=== PATIENT | male | born 1930 | race Caucasian/White ===

== ENCOUNTER 2016-12-31 23:03 | Inpatient (IN) | payer MEDICARE ==
[~2016-12-31] VITALS: Ht 180.3 cm; Wt 78.5 kg
[~2016-12-31 23:03] MED LIST: CLOP75TA PO; CYAN10009 PO; CYAN250T12 PO; DONE5TAB PO; FISH1CAP2 PO; FISH1CAP51 PO; FLUO15CR RIGHT EAR; FLUO15CR TOP; GUAI-782 PO; HALO5AMP2 IV; INSU100V SQ; ISOS30TA6 PO; ISOS60TA4 PO; LATA2.5D7 BOTH EYES; LISI40TA4 PO; METF10002 PO; NEOM7.5C2 RIGHT EAR; ONDA2VIA2 IV; OXYB5TAB10 PO; OXYB5TAB25 PO; SIMV80TA5 PO; THIA100V2 IV
--- OUTSIDE RECORDS SUMMARY | 2016-12-31 23:08 | XMS REPORT | Continuity of Care Document ---
Author Author [facility] Organization [facility] Address Unknown Phone Unavailable Care Team Providers Care Home Help Aide Name Role Phone Primary Care Physician Unavailable Source Comments Some departments are not documenting in the electronic medical record. If you do not see the information that you expected, contact Release of Information in the Health Information Management department at [phone] for further assistance in locating additional records.[facility] Active Allergies and Adverse Reactions Not on File Current Medications Not on file Active Problems Not on file Social History Tobacco Use Types Packs/Day Years Used Date Never Assessed Plan of Care Health Maintenance Due Date Last Done Comments Physical (Comprehensive) 1936 Exam Pertussis Vaccine 1940 Tetanus Vaccine 1946 Shingles Vaccine 1989 Prevnar/Pneumovax (#1) 1994 Influenza Vaccine 05/27/2017 Results from Last 3 Months Not on file
--- OUTSIDE RECORDS SUMMARY | 2016-12-31 23:08 | XMS REPORT | Continuity of Care Document ---
Author Author [facility] Address Unknown Phone Unavailable Allergies Medications Problems Procedures Results Encounters ACCT No. Visit Date/Time Discharge Status Pt. Type Provider Facility Loc./Unit Complaint [id number] 02/26/2014 15:00:00 2013 21:00:00 DIS Outpatient
--- OUTSIDE RECORDS SUMMARY | 2016-12-31 23:08 | XMS REPORT ---
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 213848397 Problem Bradycardia, sinus R00.1 Active 78484888 Problem Dyslipidemia 272.4 Active 763676295 Problem Hypertension 401.9 Active 00027398 Problem TIA 435.9 Active 733511334 Problem S/P CABG V45.81 Active Problem CAD (coronary artery disease) I25.10 Active 84342429 Problem S/P CABG (coronary artery bypass graft) Z95.1 Active 968878051 Problem Hypertension I10 Active 11818442 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
[2016-12-31] MEDS ORDERED: NORMAL SALINE 1,000 ML IV ONE (23:11)
--- NOTE | 2016-12-31 23:12 | NUR ---
STROKE ALERT TIMELINE ( - PT LAST KNOWN WELL PER [place]BINA PERSONNEL) 230: PT ARRIVAL TO ED VIA [facility], [facility] UPON ADMIT 6 2311: STROKE ALERT INITIATED, PT TO CT 4: WITH PT IN RADIOLOGY, BGM 140 - PROVIDER NOTIFIED 2316: RT, LAB ARRIVAL 2317: ART PSYCHOTHERAPIST, CCU ARRIVAL 2319: TELE-NEURO TIGER TEXT 2321: RETURN FROM CT - INTERPRETATION: NORMAL 2323: EKG, IV 2331: LAB RESULTED/REVIEWED 2334: TELE-NEURO ASSESSMENT 2355: PT ABLE TO STATE BIRTHDAY AT THIS TIME. DENIES PAIN. CLEARLY QUESTION WHAT IS WRONG WITH HIM AND ASKS WHERE HE IS - UNABLE TO DO SO PRIOR (PROVIDER NOTIFIED). CONTINUES TO BE UNABLE TO STATE NAME, MONTH/YEAR. STRAIGHT CATH FOR UA. 0105: PT AGAIN UNABLE TO STATE BIRTHDAY (PROVIDER NOTIFIED). PT ADMIT TO CCU.
--- NOTE | 2016-12-31 23:12 | NUR ---
PT TO CT
--- NOTE | 2016-12-31 23:16 | ERPDOC ---
Departure Disposition Decision Date: Jan 01, 2017 Disposition Decision Time: 00:30 Disposition: 02 TO [facility] Impression Impression Impression: Primary Impression: CVA (cerebral vascular accident) CVA mechanism: unspecified Qualified Codes: I63.9 - Cerebral infarction, unspecified Severity: Severe Condition: Improved Seen By: Physician only Referrals: MASON PROCTOR (Family) Problems/Meds/Labs Reviewed?: Yes Medications reviewed and manag: Yes Follow up care ordered?: Yes Mental Status: Alert, Occasionally Confused HPI - CVA/Neuro General Chief Complaint: Stroke Symptoms Stated Complaint: CONFUSION Time Seen by Provider: 23:11 Source: RN/MD, EMS Exam Limitations: clinical condition HPI - CVA/NEURO Initial Comments 86yo man presented to the ED for confusion/AMS. Unknown time of onset; unknown baseline. Pt is alert, but not oriented. Speech is confused. Started at 2030, per [facility] home staff; TIA sx 2 days ago. PMH has h/o TIA and CVA. All sx, other than confusion and garbled speech had resolved by the time EMS arrived. Occurred At: home Affected Areas/Deficit Locatio: Speech, Balance Allergies: Coded Allergies: codeine (Verified Allergy, Unknown, 01/01/17) Past History Unable to Obtain PMH Due to: clinical condition Patient Surgical History Colonoscopy 2006 Umbilical hernia repair Colon resection 2005 secondary to atypical polyp Cataract extraction 2006 CABG times 01/12/1986 Cardiac stents 3 1999 Discectomy Appendectomy Cholecystectomy TURP 1991 Left total hip 2012 Past Medical History Metabolic: diabetes Cardiac: CAD Neurological: CVA, TIA Hematologic: other Surgical History General: other Family History Family PMH: FOUND: other Vaccines Hx Influenza Vaccination: No Hx Pneumococcal Vaccination: No Social History Sexuality: female partner Review of Systems Unable to Obtain ROS Due to: clinical condition Neurological General: change in strength, dysarthria, weakness All other Systems All Other Systems: Reviewed and Negative Physical Exam General General Nourishment: well nourished, well developed, appears stated age, no acute distress, adult, obese General Body Habitus: well groomed Vitals and Pain First Documented Vital Signs Date Time Temp Pulse Resp B/P Pulse Ox O2 Delivery O2 Flow Rate FiO2 12/31/16 23:03 98.1 73 16 165/76 92 Room Air Weight: Kilograms: Height (feet): 5 Height (inches): 10.00 Triage Pain Scale: RN VS reviewed by Provider: Yes Progress Results/Orders Orders Procedure Category Date Status Time Oxygen Administration EDM 12/31/16 Transmitted 23:11 Iv Lock (Ed Only) EDM 12/31/16 Transmitted 23:11 Bgm (Ed) EDM 12/31/16 Transmitted 23:11 Nothing By Mouth (Ed EDM 12/31/16 Transmitted Only) 23:11 Cbc W/Auto LAB 12/31/16 Complete Diff-Reflex Manual 23:11 Cmp - Comprehensive LAB 12/31/16 Complete Metabolic 23:11 Troponin I W LAB 12/31/16 Complete Hemolysis Index 23:11 INR LAB 12/31/16 Complete 23:11 PTT LAB 12/31/16 Complete 23:11 EKG EKG 12/31/16 Taken 23:11 Ct Head W/O Contrast CT 12/31/16 Taken 23:11 Nih Stroke Scale FAVIOLA 12/31/16 In Process 23:11 Normal Saline (Normal PHA 12/31/16 In Process Saline Iv) 23:11 Elevate Hob FAVIOLA 12/31/16 In Process 23:11 Measure Vital Signs FAVIOLA 12/31/16 In Process 23:11 Ua, Dip Wreflex LAB 12/31/16 Complete Microsc & Jackhammer Splitter Operator 23:53 Manrique (Ed) EDM 12/31/16 Transmitted 23:53 Catheter Needs FAVIOLA 12/31/16 In Process Assessment 23:53 Bladder Scanner (Ed) EDM 12/31/16 Transmitted 23:53 Lab Results Laboratory Tests Test 12/31/16 23:14 12/31/16 23:31 01/01/17 00:06 Glucometer 140mg/dL White Blood Count 10.6T/MM3 Red Blood Count 4.45M/MM3 Hemoglobin 13.8GM/DL Hematocrit 41.0% Mean Corpuscular Volume 92.1UM3 Mean Corpuscular Hemoglobin 31.0UUG Mean Corpuscular Hemoglobin Concent 33.7GM/DL RDW Standard Deviation 41.3FL Platelet Count 251T/MM3 Mean Platelet Volume 10.4UM3 Immature Granulocyte % (Auto) 0.1% Neutrophils (%) (Auto) 79.8% Lymphocytes (%) (Auto) 11.8% Monocytes (%) (Auto) 6.0% Eosinophils (%) (Auto) 2.2% Basophils (%) (Auto) 0.1% Absolute Immature Granulocyte (auto 0.01T/MM3 Absolute Neutrophils (auto) 8.5T/MM3 Absolute Lymphocytes (auto) 1.3T/MM3 Absolute Monocytes (auto) 0.6T/MM3 Absolute Eosinophils (auto) 0.2T/MM3 Absolute Basophils (auto) 0.0T/MM3 Prothromb Time International Ratio 1.16 Activated Partial Thromboplast Time 27.0SEC Turbidity < 20 Sodium Level 142MEQ/L Potassium Level 5.0MEQ/L Chloride Level 104MEQ/L Carbon Dioxide Level 23MEQ/L Anion Gap 15MEQ/L Blood Urea Nitrogen 12.0MG/DL Creatinine 0.6MG/DL Glomerular Filtration Rate Calc 127 BUN/Creatinine Ratio 20RATIO Glucose Level 131MG/DL Calculated Osmolality 275MOSM/KG Calcium Level 9.4MG/DL Total Bilirubin 1.70MG/DL Icterus Index < 2 Aspartate Amino Transf (AST/SGOT) 25U/L Alanine Aminotransferase (ALT/SGPT) 18U/L Alkaline Phosphatase 60U/L Troponin I < 0.012ng/ml Total Protein 7.4G/DL Albumin 4.3G/DL Globulin 3.1G/DL Albumin/Globulin Ratio 1.4RATIO Chemistry Specimen Hemolysis 128 Urine Collection Type Manrique indwelling Urine Color Yellow Urine Turbidity Clear Urine pH 5.0 Urine Specific [place] >=1.030 Urine Protein Negative Urine Glucose (UA) Negative Urine Ketones Trace Urine Blood Negative Urine Nitrite Negative Urine Bilirubin Negative Urine Urobilinogen 0.2EU/DL Urine Leukocyte Esterase Negative Urinalysis Comment Microscopic not ind. Medications Current ED Medications Sodium Chloride (Normal Saline IV) 1,000 ml @ 125 mls/hr Q8H ONCE IV Last administered on 01/01/17 01:00; Start 12/31/16 at 23:11; Stop 01/01/17 at 07:10 EKG EKG : Rate: 60-100 Rhythm: sinus [place]: normal QRS: RBBB Intervals: [address]/T: normal Interpreted by: signing physician Consult/PCP Consult/PCP #1: Physician Contacted: [facility] Time Called: 23:19 Time of first response: 23:25 Type of discussion: Phone Consult/PCP Discussion Details No indications for TPA, can obtain MRI to confirm dx of CVA, no indications for aggressive intervention. Consult/PCP #2: [facility] Time Called: 00:24 Time of first response: 00:30 Type of discussion: Admit Discussion/PCP Discussion Details Will admit CT CT : CT: Head no contrast Interpretation: Normal, Reviewed Written Report NEENA MURRY DO Dec 31, 2016 23:16
--- NOTE | 2016-12-31 23:25 | NUR ---
PT RETURN FROM IMAGING
[2016-12-31 23:43] LABS: BASOPHILS % (AUTO) 0.1 % (0-2); EOSINOPHILS # (AUTO) 0.2 T/MM3 (0-0.5); EOSINOPHILS % (AUTO) 2.2 % (0-4); HGB - HEMOGLOBIN 13.8 GM/DL (13.5-17.5); IMMATURE GRANULOCYTE # (AUTO) 0.01 T/MM3 (0.00-0.03); IMMATURE GRANULOCYTE % (AUTO) 0.1 % (0.0-0.5); LYMPHOCYTES # (AUTO) 1.3 T/MM3 (1-4.8); LYMPHOCYTES % (AUTO) 11.8 % (23-45); MEAN CORPUSCULAR HGB CONC(MCHC 33.7 GM/DL (31-37); MEAN CORPUSCULAR VOLUME 92.1 UM3 (80-100); MEAN PLATELET VOLUME 10.4 UM3 (9.4-12.4); MONOCYTES # (AUTO) 0.6 T/MM3 (0-0.8); NEUTROPHILS #(AUTO)-ABSOLUTE 8.5 T/MM3 (1.8-7.7); NEUTROPHILS % (AUTO) 79.8 % (33-66); RED BLOOD COUNT 4.45 M/MM3 (4.50-5.90); WBC - WHITE BLOOD COUNT 10.6 T/MM3 (4.5-11.0)
[2016-12-31 23:47] LABS: INR 1.16 (0.76-1.04); PROTHROMBIN TIME 12.6 SEC (9.31-12.49)
[2016-12-31 23:55] LABS: ALBUMIN 4.3 G/DL (3.5-5.0); ALBUMIN/GLOBULIN RATIO 1.4 RATIO (1.1-2.2); ALKALINE PHOSPHATASE 60 U/L (38-126); ALT (SGPT) 18 U/L (21-72); ANION GAP 15 MEQ/L (5-15); AST (SGOT) 25 U/L (17-59); BUN/CREATININE RATIO 20 RATIO (6-26); CALCIUM 9.4 MG/DL (8.4-10.2); CHLORIDE 104 MEQ/L (98-107); CO2 - CARBON DIOXIDE 23 MEQ/L (22-30); CREATININE 0.6 MG/DL (0.8-1.5); GLOMERULAR FILTRATION RATE 127; GLUCOSE 131 MG/DL (75-110); SODIUM 142 MEQ/L (134-144); TOTAL PROTEIN 7.4 G/DL (6.3-8.2)
[2017-01-01] VITALS (55 sets, daily range): BP systolic 71–183; BP diastolic 47–115; PULSE 51–115; RESP 12–39; TEMP 97.6–100.3; O2SAT 86–98; Ht 180.3 cm; Wt 78.5 kg
--- NOTE | 2017-01-01 00:10 | NUR ---
DAUGHTER AT BEDSIDE
[2017-01-01 00:13] LABS: BLOOD, URINE NEGATIVE (NEGATIVE); COLOR,URINE YELLOW (YELLOW); LEUKOCYTE ESTERASE ,URINE NEGATIVE (NEGATIVE); NITRITE,URINE NEGATIVE (NEGATIVE); UROBILINOGEN,URINE 0.2 EU/DL (NORMAL)
--- OUTSIDE RECORDS SUMMARY | 2017-01-01 00:28 | XMS REPORT | Continuity of Care Document ---
Author Author [facility] Address Unknown Phone Unavailable Allergies Medications Problems Procedures Results Encounters ACCT No. Visit Date/Time Discharge Status Pt. Type Provider Facility Loc./Unit Complaint [id number] 02/26/2014 15:00:00 2013 21:00:00 DIS Outpatient
--- OUTSIDE RECORDS SUMMARY | 2017-01-01 00:28 | XMS REPORT | Continuity of Care Document ---
Author Author [facility] Organization [facility] Address Unknown Phone Unavailable Care Team Providers Care Business Account Leader Name Role Phone Primary Care Physician Unavailable Source Comments Some departments are not documenting in the electronic medical record. If you do not see the information that you expected, contact Release of Information in the Health Information Management department at [phone] for further assistance in locating additional records.[facility] Active Allergies and Adverse Reactions Not on [...]
--- OUTSIDE RECORDS SUMMARY | 2017-01-01 00:40 | XMS REPORT | Continuity of Care Document ---
Author Author [facility] Organization [facility] Address Unknown Phone Unavailable Care Team Providers Care Senior Ios Software Engineer Name Role Phone Primary Care Physician Unavailable Source Comments Some departments are not documenting in the electronic medical record. If you do not see the information that you expected, contact Release of Information in the Health Information Management department at [phone] for further assistance in locating additional records.[facility] Active Allergies and Adverse Reactions Not on [...]
--- OUTSIDE RECORDS SUMMARY | 2017-01-01 00:40 | XMS REPORT | Continuity of Care Document ---
Author Author [facility] Address Unknown Phone Unavailable Allergies Medications Problems Procedures Results Encounters ACCT No. Visit Date/Time Discharge Status Pt. Type Provider Facility Loc./Unit Complaint [id number] 02/26/2014 15:00:00 2013 21:00:00 DIS Outpatient
[2017-01-01] MEDS ORDERED: AMLO2.5T2 PO (00:45)
[2017-01-01] MEDS ORDERED: ATOR40TA64 PO (00:52)
[2017-01-01] MEDS ORDERED: OXYB5TAB10 PO (00:52)
[2017-01-01] MEDS ORDERED: POLY17PO6 PO (00:52)
[2017-01-01] MEDS ORDERED: DOCU-168 PO (00:52)
[2017-01-01] MEDS ORDERED: VITAMIN B-12 IM (00:57)
--- NOTE | 2017-01-01 01:05 | NUR ---
TO CCU PT TO CCU VIA CART. TRANSFERRED FROM CART TO BED WITH SLIDEBOARD AND ASSIST X3. PT ALERT, ATTEMPTING TO ANSWER QUESTIONS - UNABLE TO STATE BIRTHDAY/NAME. DAUGHTER AT BEDSIDE.
--- NOTE | 2017-01-01 01:05 | NUR ---
ADMIT TO CCU-5 PER CART. PT MOVING ALL EXTREMITIES BUT NOT ALWAYS PURPOSEFULLY. AWAKE AND ALERT BUT USES WORD SALAD. CAN STATE NAME OR BIRTHDAY. CAN ANSWER YES OR NO AT TIMES. DAUGHTER WITH PT.
--- NOTE | 2017-01-01 01:28 | NEUROPD ---
Telestroke Consultation Note Patient Information Last Name:Cindi First Name:Vinny Location: [facility] Arrival Date/Time: Age:86 Weight: Gender:male Mode of Arrival: Clinical Presentation Vital Signs/Laboratory Laboratory Tests Test 12/31/16 23:31 01/01/17 00:06 White Blood Count 10.6T/MM3 Red Blood Count 4.45M/MM3 Hemoglobin 13.8GM/DL Hematocrit 41.0% Mean Corpuscular Volume 92.1UM3 Mean Corpuscular Hemoglobin 31.0UUG Mean Corpuscular Hemoglobin Concent 33.7GM/DL RDW Standard Deviation 41.3FL Platelet Count 251T/MM3 Mean Platelet Volume 10.4UM3 Immature Granulocyte % (Auto) 0.1% Neutrophils (%) (Auto) 79.8% Lymphocytes (%) (Auto) 11.8% Monocytes (%) (Auto) 6.0% Eosinophils (%) (Auto) 2.2% Basophils (%) (Auto) 0.1% Absolute Immature Granulocyte (auto 0.01T/MM3 Absolute Neutrophils (auto) 8.5T/MM3 Absolute Lymphocytes (auto) 1.3T/MM3 Absolute Monocytes (auto) 0.6T/MM3 Absolute Eosinophils (auto) 0.2T/MM3 Absolute Basophils (auto) 0.0T/MM3 Prothromb Time International Ratio 1.16 Activated Partial Thromboplast Time 27.0SEC Turbidity < 20 Sodium Level 142MEQ/L Potassium Level 5.0MEQ/L Chloride Level 104MEQ/L Carbon Dioxide Level 23MEQ/L Anion Gap 15MEQ/L Blood Urea Nitrogen 12.0MG/DL Creatinine 0.6MG/DL Glomerular Filtration Rate Calc 127 BUN/Creatinine Ratio 20RATIO Glucose Level 131MG/DL Calculated Osmolality 275MOSM/KG Calcium Level 9.4MG/DL Total Bilirubin 1.70MG/DL Icterus Index < 2 Aspartate Amino Transf (AST/SGOT) 25U/L Alanine Aminotransferase (ALT/SGPT) 18U/L Alkaline Phosphatase 60U/L Troponin I < 0.012ng/ml Total Protein 7.4G/DL Albumin 4.3G/DL Globulin 3.1G/DL Albumin/Globulin Ratio 1.4RATIO Chemistry Specimen Hemolysis 128 Urine Collection Type Manrique indwelling Urine Color Yellow Urine Turbidity Clear Urine pH 5.0 Urine Specific [place] >=1.030 Urine Protein Negative Urine Glucose (UA) Negative Urine Ketones Trace Urine Blood Negative Urine Nitrite Negative Urine Bilirubin Negative Urine Urobilinogen 0.2EU/DL Urine Leukocyte Esterase Negative Urinalysis Comment Microscopic not ind. Patient History Scheduled Clopidogrel Bisulfate (Plavix) 75 Mg Tablet, 1 TAB PO DAILY, (Reported) Clopidogrel Bisulfate (Plavix) 75 Mg Tablet, 75 MG PO DAILY, (Reported) Cyanocobalamin (Vitamin B-12) (Vitamin B-12) 1,000 Mcg Tablet, 1 TAB PO DAILY, ( Reported) Cyanocobalamin (Vitamin B-12) (B-12) 250 Mcg Tablet, 4 TAB PO DAILY, (Reported) Donepezil HCl (Aricept) 5 Mg Tablet, 1 TAB PO HS Fluocinonide (Fluocinonide) 15 Gm Cream..g., 1 APPLIC RIGHT EAR Q2D, (Reported) APPLY TO AFFECTED AREA ON EXTERNAL EAR. Fluocinonide (Fluocinonide) 15 Gm Cream..g., 1 APPLIC TOP Q2D, (Reported) Guaifenesin/Dextromethorphan (Mucinex Dm ER 600-30 mg Tablet) 1 Each Tab.er.12h , 600 MG PO BID, (Reported) Haloperidol Lactate (Haldol) 5 Mg/1 Ml Ampul, 0.5 MG IV Q4HPRN, (Reported) Insulin Lispro (Humalog) 100 Unit/Ml Inj, 0 SQ PRN, (Reported) Isosorbide Mononitrate (Isosorbide Mononitrate ER) 60 Mg Tab.er.24h, 0.5 TAB PO DAILY, (Reported) Isosorbide Mononitrate (Isosorbide Mononitrate ER) 30 Mg Tab.er.24h, 1 TAB PO DAILY, (Reported) Latanoprost (Latanoprost) 2.5 Ml Drops, 1 DROP BOTH EYES HS, (Reported) Lisinopril (Lisinopril) 40 Mg Tablet, 40 MG PO DAILY, (Reported) Metformin HCl (Metformin HCl) 1,000 Mg Tablet, 1 TAB PO BID, (Reported) Neomycin/Polymyxin B Sulf/Hc (Cortisporin Cream) 7.5 Gm Cream..g., 1 APPLIC RIGHT EAR Q2D, (Reported) APPLY TO AFFECTED AREA ON EXTERNAL EAR. [place]-3 Fatty Acids/Fish Oil (Fish Oil 1,000 mg Capsule) 1 Each Capsule, 1 CAP PO DAILY, (Reported) [place]-3 Fatty Acids/Fish Oil ([place] 3 Fish Oil Softgel) 1 Each Capsule.dr, 1 G PO DAILY, (Reported) Ondansetron HCl (Zofran) 2 Mg/Ml Vial, 4 MG IV PRN, (Reported) Oxybutynin Chloride (Oxybutynin Chloride) 5 Mg Tablet, 5 MG PO TID, (Reported) Oxybutynin Chloride (Ditropan Xl) 5 Mg Tab.er.24, 5 MG PO TID, (Reported) Simvastatin (Simvastatin) 80 Mg Tablet, 1 TAB PO HS, (Reported) Simvastatin (Simvastatin) 80 Mg Tablet, 80 MG PO HS, (Reported) Take 1 tablet, by mouth, 1 time a day (at BEDTIME). Thiamine (Thiamine HCl) 200 Mg/2 Ml Vial, 100 MG IV DAILY, (Reported) Allergies: Coded Allergies: codeine (Verified Allergy, Unknown, 01/01/17) Patient's Surgical History: Colonoscopy 2005 Umbilical hernia repair Colon resection 2005 secondary to atypical polyp Cataract extraction 2007 CABG times 01/12/1986 Cardiac stents 3 1999 Discectomy Appendectomy Cholecystectomy TURP 1991 Left total hip 2012 Family History: Father age 57 secondary to cerebral hemorrhage, father also with a history of coronary artery disease Mother at age 97 with a history of heart failure Sexuality: female partner HPI Consult Start Time: 23:27 History Reviewed: Yes History of Present Illness 86yo M presents with acute onset unilateral weakness and confusion which began at 8:30pm. Information was provided by custodial and EMS, but the information provided is incomplete and it is unknown which side patient developed weakness on. On arrival of EMS, the weakness had resolved but patient remained confused. ROS Neurological: see HPI Neuro Scores-NIHSS Level of Consciousness: 0 Level of Consciousness: 2 Level of Consciousness: 0 Best Gaze: 0 Visual: 0 Facial Palsy: 0 Motor Arm Left: 0 Motor Arm Right: 0 Motor Leg Left: 0 Motor Leg Right: 0 Limb Ataxia: 0 Sensory: 0 Best Language: 3 Dysarthria: 2 Extinction and Inattention: 0 t-PA Imaging Reviewed: Yes Time Imaging Reviewed: 23:50 Imaging Findings No acute changes Additional Relative Exclusion: age >80 years t-PA Recommended?: No Recommendation Date: Dec 31, 2016 Recommendation Time: 23:50 Reason for not recommending outside of time window Recommendation Impression: (1) Cerebral infarction due to unspecified occlusion or stenosis of left middle cerebral artery Recommendation 86yo M presents with acute onset unilateral weakness and confusion, now with improved weakness. Neurological exam is notable for inability to follow commands and expressive aphasia. I believe patient is having an acute ischemic stroke. Patient is outside of the time window for IV TPA. Patient is unlikely to benefit from neurointerventional treatments, given his age, and patient with only aphasia. I believe patient is having an acute ischemic stroke of the left middle cerebral artery. I recommend MRI Brain without gadolinium to confirm presence of stroke, and recommend a metabolic/infectious workup to evaluate for possible metabolic encephalopathy. Other diagnostic workup, including carotid ultrasound and transthoracic echocardiogram, were considered but not recommended as these tests are unlikely to change medical management. I recommend continue Plavix. DOUGIE BROWNING MD Jan 01, 2017 00:32
[2017-01-01] MEDS ORDERED: ONDANSETRON 4mg/2ml INJECTION IV PRN (01:45)
--- NOTE | 2017-01-01 01:45 | NUR ---
TELEMEDICINE DR BUENO SAW PT. UNABLE TO SPEAK WITH APPROPRIATELY. USING WORD SALAD AND MUMBLING. DAUGHTER TALKED WITH
--- NOTE | 2017-01-01 04:19 | HPPDOC ---
KYREE BUENO MD 01/01/17 0346: HPI - Adult Date DATE: 01/01/17 TIME: 03:34 General Chief Complaint: weakness/confusion History of Present Illness Pleasant and usually alert and oriented x 86 year old male PTER upon transfer from his NH. He lives there not b/c of dysfunction but b/c to be closer to his who has dementia. Mr Cindi's daughter, Lisa, is at bedside giving additional hx. Per 3rd hand information, pt started having some speech and right sided arm abnormalities at approx 830 but to verify the exact time is difficult for me to do. PT's daughter was not contacted until 1030 and was taken to and evaluatd in ER around 1120. There saw teleNeurology decided based on improving picture and finding that he was outside of the TPA consideration. I was informed that when the tele-neurologist that evaluated things that he was improving and his NIH at an earlier appointment than her on the sixth, but the nurse was getting at around 11. is really unable to give me any history at this point. As noted above his daughter states that he usually does get around pretty well, he does need a 4 wheeled walker but these usually quite alert oriented and interactive and actually fairly vivacious with marlo, Though he did have some problems with activities of daily living like buttoning his shirt but at least he can dress himself etc. he did take Plavix this morning. Past Medical History Past Medical History Loculated fluid left lung 2005 secondary to injury Surgical History Patient's Surgical History: Colonoscopy 2006 Umbilical hernia repair Colon resection 2005 secondary to atypical polyp Cataract extraction 2007 CABG times 01/12/1986 Cardiac stents 1999 Discectomy Appendectomy Cholecystectomy TURP 1991 Left total hip 2011 Current Medications Home Meds Reported Medications [Vitamin B-12] No Conflict Check, 1000 MG IM [id number] 01/01/17 Oxybutynin Chloride (Oxybutynin Chloride) 5 Mg Tablet, 5 MG PO HS, TAB 01/01/17 Atorvastatin Calcium (Atorvastatin Calcium) 40 Mg Tablet, 1 TAB PO HS, TAB 01/01/17 Docusate Sodium (Colace) 100 Mg Capsule, 1 CAP PO BID for STOOL SOFTENING, CAP 01/01/17 Polyethylene Glycol 3350 (Miralax) 17 Gm Powd.pack, 1 PACKET PO DAILY, #30 PACKET 3 Refills 01/01/17 Amlodipine Besylate (Norvasc) 2.5 Mg Tablet, 2.5 MG PO HS, TAB 01/01/17 Oxybutynin Chloride (Ditropan Xl) 5 Mg Tab.er.24, 2.5 MG PO BID, TAB 08/01/15 Latanoprost (Latanoprost) 2.5 Ml Drops, 1 DROP BOTH EYES HS, BOTTLE 07/30/15 Clopidogrel Bisulfate (Plavix) 75 Mg Tablet, 1 TAB PO DAILY 07/29/15 [place]-3 Fatty Acids/Fish Oil (Fish Oil 1,000 mg Capsule) 1 Each Capsule, 1 CAP PO DAILY, CAP 07/29/15 Metformin HCl (Metformin HCl) 1,000 Mg Tablet, 1 TAB PO BID 07/29/15 Neomycin/Polymyxin B Sulf/Hc (Cortisporin Cream) 7.5 Gm Cream..g., 1 APPLIC RIGHT EAR Q2D APPLY TO AFFECTED AREA ON EXTERNAL EAR. 07/29/15 Allergies: Coded Allergies: codeine (Verified Allergy, Unknown, 01/01/17) Family History Family History: Father age 57 secondary to cerebral hemorrhage, father also with a history of coronary artery disease Mother at age 97 with a history of heart failure Social History Smoking Status: Never smoker Alcohol Intake: none Sexuality: female partner Current Occupational Status: retired Advance Directives: Yes DNR, Yes DPOA for Healthcare Only (CEASAR-DAUGHTER) Review of Systems Unable to Obtain ROS Due to: clinical condition Physical Exam General General Nourishment: apparent age Vital Signs Vital Signs Date Time Temp Pulse Resp B/P Pulse Ox O2 Delivery O2 Flow Rate FiO2 01/01/17 03:03 95 97 21 01/01/17 02:53 Spontaneous 01/01/17 01:54 16 01/01/17 01:05 2.00 12/31/16 23:03 98.1 165/76 Height (Feet): 5 Height (Inches): 11.00 Comments I will see obvious facial droop but difficult with the lightine and patient's inability to cooperate Comments clear when I listened but then at the end of our conversation he was snoring and a bit stertorous Abdomen (brief) Abdominal Brief: FOUND: BS normo active x4, soft, NOT FOUND: tender Neurologic (brief) Neurological Brief: NOT FOUND: cranial 2-12 intact Comments generally weak appearing, perhaps some right-sided weakness that is subtle sense is not following any commands. Neurologic RN Documented GCS Eye Opening: (4)Spontaneous Verbal: (4)Confused Motor: (5)Localizes to Pain Total: Psychiatric (brief) NOT FOUND: alert, oriented Laboratory Laboratory Tests Test 12/31/16 23:14 12/31/16 23:31 01/01/17 00:06 Glucometer 140mg/dL White Blood Count 10.6T/MM3 Red Blood Count 4.45M/MM3 Hemoglobin 13.8GM/DL Hematocrit 41.0% Mean Corpuscular Volume 92.1UM3 Mean Corpuscular Hemoglobin 31.0UUG Mean Corpuscular Hemoglobin Concent 33.7GM/DL RDW Standard Deviation 41.3FL Platelet Count 251T/MM3 Mean Platelet Volume 10.4UM3 Immature Granulocyte % (Auto) 0.1% Neutrophils (%) (Auto) 79.8% Lymphocytes (%) (Auto) 11.8% Monocytes (%) (Auto) 6.0% Eosinophils (%) (Auto) 2.2% Basophils (%) (Auto) 0.1% Absolute Immature Granulocyte (auto 0.01T/MM3 Absolute Neutrophils (auto) 8.5T/MM3 Absolute Lymphocytes (auto) 1.3T/MM3 Absolute Monocytes (auto) 0.6T/MM3 Absolute Eosinophils (auto) 0.2T/MM3 Absolute Basophils (auto) 0.0T/MM3 Prothromb Time International Ratio 1.16 Activated Partial Thromboplast Time 27.0SEC Turbidity < 20 Sodium Level 142MEQ/L Potassium Level 5.0MEQ/L Chloride Level 104MEQ/L Carbon Dioxide Level 23MEQ/L Anion Gap 15MEQ/L Blood Urea Nitrogen 12.0MG/DL Creatinine 0.6MG/DL Glomerular Filtration Rate Calc 127 BUN/Creatinine Ratio 20RATIO Glucose Level 131MG/DL Calculated Osmolality 275MOSM/KG Calcium Level 9.4MG/DL Total Bilirubin 1.70MG/DL Icterus Index < 2 Aspartate Amino Transf (AST/SGOT) 25U/L Alanine Aminotransferase (ALT/SGPT) 18U/L Alkaline Phosphatase 60U/L Troponin I < 0.012ng/ml Total Protein 7.4G/DL Albumin 4.3G/DL Globulin 3.1G/DL Albumin/Globulin Ratio 1.4RATIO Chemistry Specimen Hemolysis 128 Urine Collection Type Manrique indwelling Urine Color Yellow Urine Turbidity Clear Urine pH 5.0 Urine Specific [place] >=1.030 Urine Protein Negative Urine Glucose (UA) Negative Urine Ketones Trace Urine Blood Negative Urine Nitrite Negative Urine Bilirubin Negative Urine Urobilinogen 0.2EU/DL Urine Leukocyte Esterase Negative Urinalysis Comment Microscopic not ind. 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 Inital report that he was improving, but now appears to be getting worse. NPO for risk of aspiration. MRI brain in am to confirm size/location. aspriin DE. Tele, DNR. Could order angiography/echo etc if would change tx. (2) Coronary artery disease Status: Chronic (3) Hyperlipidemia Status: Chronic (4) Peripheral neuropathy Status: Chronic Qualifiers: Peripheral neuropathy type: polyneuropathy, unspecified Qualified Codes: G62.9 - Polyneuropathy, unspecified (5) Hypertension Status: Chronic (6) Encephalopathy acute Status: Acute (7) Type 2 diabetes mellitus Status: Chronic (8) LONA (obstructive sleep apnea) Status: Chronic Code Status Full Code Hospital Course Summary Disclaimer The hospital course summary below is not to be considered part of the above Progress Note. GLENN GUZMAN MD 01/01/17 3874: Past Medical History Current Medications Home Meds Reported Medications [Vitamin B-12] No Conflict Check, 1000 MG IM [id number] 01/01/17 Oxybutynin Chloride (Oxybutynin Chloride) 5 Mg Tablet, 5 MG PO HS, TAB 01/01/17 Atorvastatin Calcium (Atorvastatin Calcium) 40 Mg Tablet, 1 TAB PO HS, TAB 01/01/17 Docusate Sodium (Colace) 100 Mg Capsule, 1 CAP PO BID for STOOL SOFTENING, CAP 01/01/17 Polyethylene Glycol 3350 (Miralax) 17 Gm Powd.pack, 1 PACKET PO DAILY, #30 PACKET 3 Refills 01/01/17 Amlodipine Besylate (Norvasc) 2.5 Mg Tablet, 2.5 MG PO HS, TAB 01/01/17 Oxybutynin Chloride (Ditropan Xl) 5 Mg Tab.er.24, 2.5 MG PO BID, TAB 08/01/15 Latanoprost (Latanoprost) 2.5 Ml Drops, 1 DROP BOTH EYES HS, BOTTLE 07/30/15 Clopidogrel Bisulfate (Plavix) 75 Mg Tablet, 1 TAB PO DAILY 07/29/15 [place]-3 Fatty Acids/Fish Oil (Fish Oil 1,000 mg Capsule) 1 Each Capsule, 1 CAP PO DAILY, CAP 07/29/15 Metformin HCl (Metformin HCl) 1,000 Mg Tablet, 1 TAB PO BID 07/29/15 Neomycin/Polymyxin B Sulf/Hc (Cortisporin Cream) 7.5 Gm Cream..g., 1 APPLIC RIGHT EAR Q2D APPLY TO AFFECTED AREA ON EXTERNAL EAR. 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 (2) Aphasia complicating stroke Status: Acute Assessment & Plan: Expressive/receptive (3) Encephalopathy acute Status: Acute (4) Coronary artery disease Status: Chronic (5) Hyperlipidemia Status: Chronic (6) Peripheral neuropathy Status: Chronic Qualifiers: Peripheral neuropathy type: polyneuropathy, unspecified Qualified Codes: G62.9 - Polyneuropathy, unspecified (7) Hypertension Status: Chronic (8) Type 2 diabetes mellitus Status: Chronic (9) LONA (obstructive sleep apnea) Status: Chronic Assessment Dr. Frank's notes reviewed, patient/family interviewed and patient examined. HPI-Mr. Puente is an 86-year-old male who presented to the emergency room from [facility] where he was reported to develop increased weakness with unequal library services assistant and word salad yesterday evening. shelter notes do not describe where weakness was localized although right-sided weakness was suggested at some point. 3 days prior to presentation the patient had 5-10 minute episode of difficulty speaking and right-sided weakness with dragging of his right foot and difficulty holding things in his right hand described by his daughter. Symptoms resolved and he had no further neurological deficits until yesterday evening. Onset of symptoms yesterday is believed to been about 8:30 PM and he presented to the emergency room at 11 PM where weakness was believed to be improving on arrival. On arrival in the emergency room the patient had equal library services assistant and no facial asymmetry but he was described as confused. Noncontrast CT head was negative for acute pathology and the patient was admitted to the intensive care unit. 3 children are at bedside currently indicating the patient will occasionally say something but sounds fairly normal like "how are you" but most of the time speech is nonsensical and he tends to perseverate on numbers and the word "Dial". He does not follow simple commands but is moving all 4 extremities fairly symmetrically/spontaneously but when they ask him to move his arms or legs he doesn't respond. The patient has called his children by name. They describe his speech as incoherent. PH/SH/FH-as above plus medical history notable for coronary artery disease, diabetes mellitus, hypertension, colonic polyps, BPH, obstructive sleep apnea with CPAP, amyloid angiopathy by MRI in July 2015, history TIAs, hyperlipidemia, peripheral neuropathy of unknown etiology. ROS-patient unable to provide review of systems however his children report that his blood pressure has been low recently prompting discontinuation of the medication. He's had no weight loss. He has virtually no sensation on the bottom surface of his feet. He uses a walker and is generally very social in active at [facility]. He has been more fatigued than usual recently but doesn't complain and family are unaware of any other symptoms. EXAM General-164/76, 98.3, awake, NAD, responds verbally-word salad, perseverates, expressive/receptive aphasia HEENT-PERRL, EOMI, conjugate gaze, sclera anicteric, conjunctiva moderately injected, facial structure symmetric, no facial droop, oral membranes dry, neck supple and without adenopathy Lungs-respirations nonlabored, good airflow, anterior lung moore clear Cardiac-cardiac rhythm regular, S1 and S2 Abd-soft, nontender, without palpable mass, bowel sounds present Ext-without edema Neuro-cranial nerves III through XII intact, motor tone normal, course rest tremor present left upper extremity and may worsen with arm extended (new per family), no drift of the upper extremities, patient does not follow directions to assess library services assistant but withdraws both upper extremities weakly to palmar stimulation. The patient withdraws his left leg more briskly to plantar stimulation than the right but is spontaneously moving both lower extremities symmetrically. Both toes are upgoing with plantar stimulation. Expressive/ receptive aphasia, mumbled speech. Psych-calm. CT head reviewed by myself, atrophy and chronic ischemic changes but no acute bleed. Laboratory data reviewed and notable only for bilirubin of 1.7 and borderline potassium 5.0. Presentation consistent with acute ischemic stroke likely involving [place] area. MRI pending. PT/OT/speech therapy consulted. Neuro-lens silverer recommendations reviewed, continue Plavix. 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 Permissive hypertension. No gross focal weakness in the extremities evident however patient's receptive aphasia precludes definitive examination. Recent cardiac workup was Dr. Garcia-contact office on Tuesday for results of echo. Neuro-lens silverer did not recommend repeating echo at this time or obtaining Dopplers. Lipids/A1c pending. Neuro-consult on Tuesday. SCDs/heparin for DVT prophylaxis. Critically ill. Plan/Intensity of Service Critical care-time in 0947, time out 1045 DVT Prophylaxis: SCD'S, SQ Heparin Hospital Course Summary Hospital Course Summary 12/31-01/01/17 Presentation consistent with acute ischemic stroke likely involving [place] area. MRI pending. PT/OT/speech therapy consulted. Neuro-lens silverer recommendations reviewed, continue Plavix. 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 Permissive hypertension. No gross focal weakness in the extremities evident however patient's receptive aphasia precludes definitive examination. Recent cardiac workup was Dr. Garcia-contact office on Tuesday for results of echo. Neuro-lens silverer did not recommend repeating echo at this time or obtaining Dopplers. Lipids/A1c pending. SCDs/heparin for DVT prophylaxis. Critically ill. KYREE BUENO MD Jan 01, 2017 03:46 GLENN GUZMAN MD Jan 01, 2017 13:59
--- NOTE | 2017-01-01 06:00 | NUR ---
STATUS PT FATIGUED BUT DOES AWAKEN TO VOICE. LEFT SIDE OF PT SLIGHTLY STRONGER THAN RIGHT. CONTINUES TO USE WORD SALAD. HAS NOT VOIDED.
--- NOTE | 2017-01-01 08:00 | NUR ---
Status Neuro: speech is mostly word salad. Has trouble following commands. Manrique catheter inserted for urinary retention. Returns 675cc.
[2017-01-01] MEDS: NORMAL SALINE 1,000 ML IV SCH ×3 (09:30→21:06)
[2017-01-01] MEDS: HEPARIN SUB-Q 5,000 unit/0.5ml vial SQ SCH ×2 (09:31→18:14)
--- NOTE | 2017-01-01 10:30 | NUR ---
Activity PT, OT and Speech therapy have worked with patient.
--- NOTE | 2017-01-01 11:45 | NUR ---
Activity up to Bedside commode, has BM. Right side weak, much difficulty transferring.
--- NOTE | 2017-01-01 11:50 | NUR ---
Care bag bath given at this time, no skin compromise issues noted. Helps to turn.
--- NOTE | 2017-01-01 11:52 | NUR ---
CM THIS WORKER MET WITH DAUGHTERS AT THIS TIME. PT WAS BEING EVALUATED BY SPEECH THERAPY. THIS WORKER INTRODUCED SELF AND ROLE OF CASE MANAGEMENT. DAUGHTERS REPORTED THAT PT WOULD PLAN TO RETURN TO [facility] AT TIME OF DISCHARGE. THIS WORKER NOTIFIED FAMILY THAT CASE MANAGEMENT WOULD ASSIST IN DISCHARGE PLANNING.
--- NOTE | 2017-01-01 12:35 | STEVAL ---
Communication Facial symmetry at rest: WFL Facial symmetry with smile: WFL Tongue at rest: normal Palatal Elevation: normal Basic Oral Peripheral Comment Overall, the patient did not following commands for oral-motor movements or assessment. He was also not able to imitate oral-motor movements when a model was provided. The patient's attempts at oral-motor movement were characterized by groping movements. 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 He was inconsistently able to state his name and the partial name of one of his kids. He was able to complete the spontaneous speech task of counting 1-10, but he required cues to initiate. He was able to continue counting to 20, with moderate cues to continue, including the ST saying "eleven " for him. He was not able to name common objects, even when a carrier phrase cue or a carrier phrase cue and a phonetic cue were provided. He did not imitate words. The patient was not able to demonstrate and use a reliable yes/ no response, even when the questions were personally related to him and when multiple visual cues were provided. THE PATIENT ANSWERED ALL QUESTIONS "YES". The patient inconsistently uses spontaneous speech/phrases, but exhibits difficulty with volitional tasks. The patient's expression is characterized by the use of neologisms and perseveration on specific words (i.e. "dial"). The patient was unable to read large-print phonetic words. He did not read the words, even when a phonetic cue was provided to start. Aphasia Spontaneous Speech: Yes Repetition: No Object Naming: No Confrontation Naming: No Automatic Speech: Yes Storing Telling: No Speech inconsistencies: Yes Lingual groping: Yes Apraxia Comment The patient's oral-motor movements were characterized by groping and inability to imitate the movement. When attempting to imititate words, the patient was unable to accurately imitate lip closure for the initial consonant sound /p/. Speech errors were inconsistent. Writes/sign name: No (attempted, but pt unable to drafter plumbing pen for task) Social Interaction: Interacts fam/staff/visit (some spontaneous speech (i.e. "how are you" or "good morning")), Responds to others Visual Organization: Impaired (impaired vision at baseline) Assessment/Plan of Care Speech Therapy Impressions: The patient presents with severe verbal expression deficits, likely 2' to apraxia and aphasia. The pt's comprehension is also impaired. Continued Speech therapy focused on communication is warranted and recommended. LTG: The patient will develop functional and intelligible speech to express his wants and needs in his daily living environment. STG: The patient will complete automatic speech tasks with 90% accuracy and minimal verbal or visual cues. STG: The patient will imitate vowel sounds in unison with the PRESSROOM SUPERVISOR with 90% accuracy and minimal cues. STG: The patient will imitate single-syllable words in unison with the PRESSROOM SUPERVISOR with 90% accuracy. STG: The patient will fill in carrier phrases with 90% accuracy and minimal cues. ST Treatment Plan: Communication Retraining ST Treatment Plan Frequency: five times per week Treatment Plan Duration: one week Plan of Care Comment ST will continue to follow per plan of care to address stated goals. Additional goals will be added as necessary. Recommended Diet: See clinical swallow eval report for details. Pureed diet with nectar-thick liquids. no straws. Date of Visit 01/01/17 Time Visit Began: 11:15 Time Visit Ended: 11:45 ST Assess/Plan of Care: ST Treatment Charge: Swallow Eval Minutes of Individual Therapy: 30 RADHA NEWMAN MS [facility] [facility] Jan 01, 2017 12:03
--- NOTE | 2017-01-01 12:55 | STEVAL ---
Eval Subjective and History Date/Time of Eval DATE: 01/01/17 TIME: 11:50 Medical Diagnosis Stroke, suspected left MCA CVA Treatment Order: Assessment, Dev./Imp. tx plan Orientations: Alert, Cooperative Primary Complaint: weakness, confusion, dysphagia Pain: No (Pt. 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, Coronary Artery Disease, Hyperliidemia, Peripheral neuropathy, hypertension, encephalopathy acute, Type 2 diabetes mellitus, LONA Medical History Form Reviewed: Yes Residence Type: [place] Lives With: other Prior Functional Status: Patient lived in [facility] (with minimal assistance) to be close to Current Functional Status: Patient at [facility] due to MCA CVA Education Subject: Safety, Treatment Plan Person(s) Educated: Patient, Family/DPOA (Three children were present for session) Instruction Understanding Demo: Famly/Cargvr verb underst Education Comment AQUACULTURE WORKER educated patient on reasoning for evaluation. Patient was agreeable to evaluation. Subjective and History Comment: Upon arrival, patient was laying upright in bed with three of his children present in the room. Patient had no c/o pain or fatigue during session. Family members agreed to having graduate clinician, Tati, complete assessment while being supervised by AQUACULTURE WORKER Elaine. Dysphagia Evaluation Evaluation Location: Bed (90) Evaluation Angle: 90 Oral Peripheral Exam-facial: Facial Symmetry: No Impairment (WFL) Tongue Elevation: Unable to Elicit Tongue Lateralization: Unable to Elicit Tongue Protrusion: Unable to Elicit Tongue Retraction: Unable to Elicit Tongue Extension Midline: Unable to Elicit Labial Approximation: Unable to Elicit Volitional Cough: Unable to Elicit Palatal Elevation: Minimal Impairment Larynx Elevation During Swallo: Minimal Impairment Saliva Control: No Impairment (WFL) Dentition: Natural (missing molars ) Lip Seal: Adequate-liquid (nectar thick cranberry, thin water), Adequate- pudding, Adequate-solid (yo cracker) Lingual Manipulation: Adequate-liquid, Adequate-pudding, Inadequate-solid ( yo cracker ) Chewing: Inadequate-solid (yo cracker) Oral cavity clear post swallow: Adequate-liquid (nectar thick, thin ), Adequate -pudding, Inadequate-solid (yo cracker residue still in oral cavity following swallow ) Swallow initiated w/o delay: Adequate-liquid (nectar thick, thin ), Adequate- pudding (however, oral bolus holding approximately 10-11 seconds with pudding ) , Adequate-solid (yo cracker ) Multiple swallows not needed: Adequate-liquid, Adequate-pudding, Inadequate- solid (yo cracker ) Voice clear&dry post swallow: Adequate-liquid, Adequate-pudding, Adequate-solid No cough/throat clear: Adequate-liquid, Adequate-pudding, Adequate-solid Comments Assessment/Plan of Care Speech Therapy Impressions: An oral mechanism exam was completed first. Patient presents with no impaired facial symmetry and natural dentition; however, missing molars. Patient was unable to complete labial and lingual movement tasks when asked, likely due to a motor planning component. Palatal elevation was observed to be minimally impaired when patient yawned. Patient did not produce any coughs during assessment. Dysphagia evaluation was completed next. Patient was given trials of nectar thick cranberry juice via spoon, straw, and cup; ice chips via spoon; thin water via spoon and straw; vanilla pudding via spoon; and a small amount of yo cracker placed in patient's oral cavity. First the patient was given a trial of pudding via spoon. Patient held the bolus in his mouth for approximately 10 seconds before swallowing, two more trials were given demonstrating adequate lip seal and swallow triggered 10 seconds after the bolus was present. No significant oral residue remained. Next, patient was given trials of cranberry juice via spoon exhibiting adequate labial closure. A straw was trialed with cranberry juice. Patient was unable to draw the liqud through the straw. Then trials of ice chips were given to the patient via spoon. Patient demonstrated adequate mastication. Trials of thin water were given next via spoon then straw. Patient presented with difficulty utilizing the straw and obtaining any liquid. Trials with the straw were discontinued. When given a trial of yo cracker, the patient was not able to picking crew supervisor piece from clinician's hand. Clinician placed cracker in oral cavity. Patient held bolus and did not chew until prompted by the clinician. Patient was given the cup of cranberry juice via cup. Patient grabbed the cup with his right hand and sipped the juice. During all trials and consistencies, the patient held the bolus in his oral cavity for approximately 10 seconds. The patient did not produce any coughs and had no other clinical s/s of aspiration. It is recommended for the patient to have a pureed diet with nectar thick liquids due to the patient holding the bolus within his oral cavity for a long period of time prior to swallowing the solids/liquids. Claims Sorter Goal: Pt will maintain nutrition and hydration of the least restrictive diet while demonstrating no s/s of aspiration for 5 consecutive trials. Short Term Goal: Pt will consume a pureed consistency with nectar liquids without outward signs of aspiration at bedside in 5 out of 5 of trials. Pt will demonstrate 3 out of 4 components necessary for a safe swallow as listed from the following: taking small sips/bites, alternating between solids/ liquids, sitting upright during meals, remaining upright 20-30 minutes following meals, utilizing no straw when drinking liquids. ST Treatment Plan: Swallow Retraining, Modified Diet ST Treatment Plan Frequency: five times per week Treatment Plan Duration: one week Plan of Care Comment Recommended to picking crew supervisor patient for 5 times a week for one week. Recommended Diet: Pureed consistency [place] thick liquids No straws Date of Visit 01/01/17 Time Visit Began: 10:45 Time Visit Ended: 11:15 ST Assess/Plan of Care: ST Treatment Charge: Ben Obando Minutes of Individual Therapy: 30 TATI GRANT Jan 01, 2017 11:53
--- NOTE | 2017-01-01 13:10 | NUR ---
To MRI at this time per cart. OK to go without RN monitoring per Dr. Thakkar.
--- NOTE | 2017-01-01 14:00 | NUR ---
Returns from MRI per cart, VSS, denies discomfort. Neuros improved.
[2017-01-01] MEDS: CLOPIDOGREL 75 MG TABLET PO SCH (18:13)
[2017-01-01] MEDS: ATORVASTATIN 40 MG TABLET PO SCH (21:37)
[2017-01-01] MEDS: LATANOPROST 0.005% EYE DROPS 2.5 ML BOTTLE BOTH EYES SCH (21:38)
--- NOTE | 2017-01-01 23:00 | NUR ---
HEART RATE SINUS CRISTO WITH PVC'S AND PAC'S. HR DROPS INTO 30'S FOR VERY SHORT WHILE AND THEN RETURNS TO 40'S-50'S. PT REMAINS ON BIPAP/21%.
[2017-01-02] VITALS (20 sets, daily range): BP systolic 98–184; BP diastolic 60–84; PULSE 44–74; RESP 11–33; TEMP 96–99.4; O2SAT 92–99
[2017-01-02] MEDS: HEPARIN SUB-Q 5,000 unit/0.5ml vial SQ SCH ×3 (01:06→17:09)
[2017-01-02 05:17] LABS: BASOPHILS % (AUTO) 0.1 % (0-2); EOSINOPHILS % (AUTO) 0.1 % (0-4); HCT - HEMATOCRIT 39.7 % (41-53); HGB - HEMOGLOBIN 13.4 GM/DL (13.5-17.5); IMMATURE GRANULOCYTE # (AUTO) 0.02 T/MM3 (0.00-0.03); IMMATURE GRANULOCYTE % (AUTO) 0.2 % (0.0-0.5); LYMPHOCYTES # (AUTO) 0.9 T/MM3 (1-4.8); LYMPHOCYTES % (AUTO) 10.1 % (23-45); MEAN CORPUSCULAR HGB 31.3 UUG (26-34); MEAN CORPUSCULAR HGB CONC(MCHC 33.8 GM/DL (31-37); MEAN CORPUSCULAR VOLUME 92.8 UM3 (80-100); MEAN PLATELET VOLUME 10.1 UM3 (9.4-12.4); MONOCYTES # (AUTO) 0.7 T/MM3 (0-0.8); MONOCYTES % (AUTO) 7.5 % (0-9.0); NEUTROPHILS #(AUTO)-ABSOLUTE 7.5 T/MM3 (1.8-7.7); RED BLOOD COUNT 4.28 M/MM3 (4.50-5.90); WBC - WHITE BLOOD COUNT 9.2 T/MM3 (4.5-11.0)
[2017-01-02 05:24] LABS: ALBUMIN 3.8 G/DL (3.5-5.0); ALBUMIN/GLOBULIN RATIO 1.4 RATIO (1.1-2.2); ALKALINE PHOSPHATASE 67 U/L (38-126); ALT (SGPT) 20 U/L (21-72); ANION GAP 12 MEQ/L (5-15); AST (SGOT) 16 U/L (17-59); BUN/CREATININE RATIO 12 RATIO (6-26); CALCIUM 8.9 MG/DL (8.4-10.2); CHLORIDE 106 MEQ/L (98-107); CO2 - CARBON DIOXIDE 24 MEQ/L (22-30); CREATININE 0.6 MG/DL (0.8-1.5); GLOMERULAR FILTRATION RATE 127; GLUCOSE 136 MG/DL (75-110); POTASSIUM 4.1 MEQ/L (3.6-5); SODIUM 142 MEQ/L (134-144); TOTAL PROTEIN 6.6 G/DL (6.3-8.2)
[2017-01-02 05:37] LABS: HEMOGLOBIN A1C 5.5 % (6.1-7.9)
--- NOTE | 2017-01-02 06:00 | NUR ---
STATUS HAS SLEPT MUCH OF NIGHT. WAS ON BIPAP MUCH OF NIGHT WHICH DID CONTROL APNEA. HR HAS BEEN 60'S NOW TOO. HOB UP. WHEN AWAKE, ABLE TO SAYS MOST WORDS AND FOLLOW COMMANDS.
[2017-01-02] MEDS: NORMAL SALINE 1,000 ML IV SCH (08:23)
[2017-01-02] MEDS: CLOPIDOGREL 75 MG TABLET PO SCH (08:47)
[2017-01-02] MEDS: POLYETHYL.GLYCOL 3350 PACKET 17gm PO SCH (09:00)
--- NOTE | 2017-01-02 09:15 | NUR ---
AM Care given, then transferred to recliner with one assist. strength ok, but has poor balance.
--- NOTE | 2017-01-02 09:29 | DI ---
Indication: ITS.REASON: AMS PROCEDURE: CT HEAD W/O CONTRAST: Encounter: Initial Comparison: July 29, 2015 Technique: Axial CT images through the head were performed without contrast. Iterative Reconstruction dose reducing technique was utilized. FINDINGS: Moderate atrophy. The ventricles are unchanged. There are extensive areas of low attenuation in the white matter which most likely represent changes from chronic microvascular ischemia. The brainstem, cerebellum, and cerebral hemispheres otherwise have a normal morphology and CT attenuation. There is no evidence of midline displacement. No hemorrhage, signs of acute territorial stroke, mass effect, mass lesions, or edema is evident. The visualized portions of the skull base, midface, and calvarium demonstrate no abnormality. The paranasal sinuses are well aerated and free of significant disease. The tympanic and mastoid cavities appear normal. IMPRESSION: No acute intracranial abnormality or hemorrhage. There is a preliminary report by [facility]. .
--- NOTE | 2017-01-02 10:23 | DI ---
Indication: ITS.REASON: CVA sx, right arm weakness, dysarthria PROCEDURE: MRI BRAIN W/O CONTRAST: Encounter: Initial Comparisons: Brain MRI dated July 30, 2015 Technique: Multiplanar, multisequence, MR imaging of the head without contrast was acquired. FINDINGS: Moderate atrophy. The ventricles are of normal size, shape, and contour for the patient's age. There are extensive areas of T2-weighted and T2 FLAIR weighted signal abnormality in the deep frontoparietal white matter that most likely represent small vessel ischemic disease. This is of a degree that is considered to be normal for the patient's age. The brain stem, cerebellum, and cerebral hemispheres otherwise have a normal morphologic appearance as well as MR signal intensity on all pulse sequences. There are no areas of restricted diffusion on diffusion weighted imaging to suggest an acute infarct. There is no evidence of an intracranial mass lesion, intracranial hemorrhage, or hydrocephalus. The visualized portions of the orbits, calvarium, paranasal sinuses, and skull base demonstrate no significant abnormality. Multiple punctate densities on the gradient echo sequences could be due to mineral deposition or amyloid angiopathy. These are stable from the comparison. IMPRESSION: No acute intracranial hemorrhage or infarct. There is a preliminary report by [employer]. .
--- NOTE | 2017-01-02 11:05 | NUR ---
catheter DCd as ordered, will offer incontinence briefs.
--- NOTE | 2017-01-02 13:16 | NUR ---
Status Transferred to medical unit per wheelchair after walking 10 feet. Tolerates well, balance much better.
--- NOTE | 2017-01-02 13:20 | NUR ---
Update Pt arrives to room 162 by wheelchair, pt is assisted to recliner with use of gait belt and x1 person. Pt denies any pain, he is a&ox3, pt is hard of hearing. No family with him currently. Pts gait is unsteady, IV TO L FA is patent. Will continue to infuse NS as ordered.
--- NOTE | 2017-01-02 15:34 | PNPDOC ---
Subjective Date DATE: 01/02/17 TIME: 15:07 Subjective Mr. Puente was seen while still in the ICU this morning. He greeted me pleasantly in with fluent speech. He did not remember me from yesterday nor does he recall working with physical therapy or speech therapy. He indicated he doesn't remember anything about yesterday including MRI imaging. He's concerned about his family and his . He denies any weakness in his arms or legs but reports he has numbness in his hands and feet which is chronic. He denied vertigo today and is having no difficulty with his vision. He denied dyspnea, chest pain, palpitations, nausea, fever, or lightheadedness. He doesn't like the pured diet and is swallowing without difficulty so far today per nursing report. The patient thinks he may have had a seizure at some point in the past but is uncertain of details. Objective Vital Signs Vital signs Vital Signs Date Time Temp Pulse Resp B/P Pulse Ox O2 Delivery O2 Flow Rate FiO2 01/02/17 13:35 98.3 54 18 152/71 97 Room Air 01/02/17 05:00 21 01/01/17 01:05 2.00 I/O [id number] EXAM General-NAD, alert, fluent speech with occasional word searching HEENT-PERR, EOMI, conjunctiva clear, sclera anicteric, oropharynx clear Lungs-respirations nonlabored, good airflow, breath sounds clear bilaterally Cardiac-regular rhythm, S1-S2 Abd-soft, nontender, bowel sounds present Ext-without edema Neuro-moving all extremities well/symmetrically; plantar surfaces of the patient 's feet are hypersensitive to palpation Psych-patient is oriented to [facility] and had difficulty identifying the year initially but eventually settled on 2017 Height (Feet): 5 Height (Inches): 11.00 Weight (Kilograms): 80.600 Laboratory Laboratory Laboratory Tests 12/31/16 23:31 01/02/17 05:01 Laboratory Tests 12/31/16 23:31 01/02/17 05:01 Bilirubin 2.9 (unconjugated 2.1, conjugated 0) AST/ALT/alkaline phosphatase all normal [id number] fasting, 124 2 hours after breakfast EKG Sinus rhythm on bedside telemetry Radiology Final MRI report available revealing no acute pathology, moderate atrophy, extensive areas consistent with small vessel ischemic disease in the deep frontoparietal white matter felt to be normal for patient's age. Punctate densities described suggest to be due to mineral deposition or amyloid angiopathy which were stable compared to MRI in July 2015. Assessment & Plan Problems: (1) Aphasia complicating stroke Status: Resolved Assessment & Plan: Expressive/receptive aphasia on admission, resolved within 24 hours (2) Cerebral infarction due to unspecified occlusion or stenosis of left middle cerebral artery Status: Resolved Assessment & Plan: ruled out by MRI (3) Encephalopathy acute Status: Acute (4) Coronary artery disease Status: Chronic (5) Hyperlipidemia Status: Chronic (6) Peripheral neuropathy Status: Chronic Qualifiers: Peripheral neuropathy type: polyneuropathy, unspecified Qualified Codes: G62.9 - Polyneuropathy, unspecified (7) Hypertension Status: Chronic (8) Type 2 diabetes mellitus Status: Chronic Assessment & Plan: A1c 5.5 on 01/02/17 (9) LONA (obstructive sleep apnea) Status: Chronic Assessment & Plan: CPAP (10) Bradycardia Assessment Significant improvement with respect to patient's speech fluency and diet consultant. He is able to respond to questions appropriately and follow commands today. Hemodynamically stable, transfer out of ICU. MRI without evidence of acute stroke, will ask Dr. Sharp to see patient in the morning. Family report event 18 months ago with the same as presenting symptoms and the patient had a brief episode (10 minutes) of aphasia and right- sided weakness suggestive of TIA several days prior to hospitalization. Consider EEG-will discuss with Dr. Sharp. Continue Plavix as per recommendation of neuro-laser/electro optics technician on date of admission. Continue PT/OT/speech therapy-hopefully can advance diet tomorrow. Diabetes well controlled, typically on metformin but given limited oral intake currently will continue to monitor with diet alone. Persistent bradycardia with rates typically in the 50s but occasionally dropping into the 30s while sleeping; blood pressure stable. Known coronary disease managed by Dr. Garcia, will contact his office tomorrow for results of recent cardiac workup/echocardiogram. Amlodipine on hold, blood pressure minimally elevated. Resume in a.m. Lipids pending Plan/Intensity of Service MRI report reviewed, supplemental history provided by nursing, laboratory data reviewed. DVT Prophylaxis: SCD'S, SQ Heparin Code Status Do Not Resuscitate Hospital Course Summary Disclaimer The hospital course summary below is not to be considered part of the above Progress Note. Hospital Course Summary 12/31-01/01/17 Presentation consistent with acute ischemic stroke likely involving [place] area. MRI pending. PT/OT/speech therapy consulted. Neuro-laser/electro optics technician recommendations reviewed, continue Plavix. 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 Permissive hypertension. No gross focal weakness in the extremities evident however patient's receptive aphasia precludes definitive examination. Recent cardiac workup was Dr. Garcia-contact office on Tuesday for results of echo. Neuro-laser/electro optics technician did not recommend repeating echo at this time or obtaining Dopplers. Lipids/A1c pending. SCDs/heparin for DVT prophylaxis. Critically ill. 01/02/17 Significant improvement with respect to patient's speech fluency and diet consultant. He is able to respond to questions appropriately and follow commands today. Hemodynamically stable, transfer out of ICU. MRI without evidence of acute stroke, will ask Dr. Sharp to see patient in the morning. Family report event 18 months ago with the same as presenting symptoms and the patient had a brief episode (10 minutes) of aphasia and right- sided weakness suggestive of TIA several days prior to hospitalization. Consider EEG-will discuss with Dr. Sharp. Continue Plavix as per recommendation of neuro-laser/electro optics technician on date of admission. Continue PT/OT/speech therapy-hopefully can advance diet tomorrow. Diabetes well controlled, typically on metformin but given limited oral intake currently will continue to monitor with diet alone. Persistent bradycardia with rates typically in the 50s but occasionally dropping into the 30s while sleeping; blood pressure stable. Known coronary disease managed by Dr. Garcia, will contact his office tomorrow for results of recent cardiac workup/echocardiogram. Amlodipine on hold, blood pressure minimally elevated. Resume in a.m. Lipids pending GLENN GUZMAN MD Jan 02, 2017 15:11
--- NOTE | 2017-01-02 18:32 | NUR ---
VANDANA LOPEZ SPENT MOST OF THE AFTERNOON ON THE RECLINER, HE WAS ASSISTED TO BED AROUND 1800 AND IS NOW WATCHING TV. HE DID NOT LIKE THE CONSISTENCY OF HIS MEAL, THUS HE ATE ABOUT 25% OF IT. PT HAS NO COMPLAINTS. HE HAS A UNSTEADY GAIT AND IS VERY HARD OF HEARING. 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
[2017-01-02] MEDS: ATORVASTATIN 40 MG TABLET PO SCH (21:03)
[2017-01-02] MEDS: LATANOPROST 0.005% EYE DROPS 2.5 ML BOTTLE BOTH EYES SCH (21:03)
[2017-01-02] MEDS: AMLODIPINE 2.5 MG TABLET PO SCH (21:08)
[2017-01-03] VITALS (8 sets, daily range): BP systolic 138–161; BP diastolic 69–76; PULSE 45–62; RESP 12–28; TEMP 95.7–96.6; O2SAT 94–97
--- NOTE | 2017-01-03 00:21 | NUR ---
STATUS PT SLEEPING WITH BI-PAP ON. TELE. SHOWING CRISTO HEART RATE 35 TO 50'S OFF AND ON. THIS IS WHAT PT HAD LAST NIGHT IN CCU. DR SCOTT UPDATED NO NEW ORDER RECEIVED AT THIS TIME.
[2017-01-03] MEDS: HEPARIN SUB-Q 5,000 unit/0.5ml vial SQ SCH ×3 (01:00→17:09)
--- NOTE | 2017-01-03 03:40 | NUR ---
STATUS PT SLEEPING, REPOSITIONING HIS SELF AT TIMES. TELE. CONTINUES TO SHOW RCISTO WITH V-CRISTO. DR SCOTT WAS UPDATE WITH THE CONTINUE RATE. NO NEW ORDERS RECEIVED. PT IS ALERT AND ORIENTED WHEN AWAKEN. HE CONTINUES TO HAVE DIFFICULT FINDING THE RIGHT WORDS WHEN HE IS TALKING. HE IS ONE ASSIST WITH WALKING USING FWW AND GAIT BELT. GAIT IS UNSTEADY AT TIMES. CALL LIGHT WITHIN REACH. BED ALARM ON. PT HAS NOT USED THE CALL LIGHT TONIGHT.
[2017-01-03 05:25] LABS: ANION GAP 14 MEQ/L (5-15); BUN/CREATININE RATIO 15 RATIO (6-26); CALCIUM 8.8 MG/DL (8.4-10.2); CHLORIDE 107 MEQ/L (98-107); CO2 - CARBON DIOXIDE 24 MEQ/L (22-30); CREATININE 0.6 MG/DL (0.8-1.5); GLOMERULAR FILTRATION RATE 127; GLUCOSE 113 MG/DL (75-110); POTASSIUM 3.3 MEQ/L (3.6-5); SODIUM 145 MEQ/L (134-144)
[2017-01-03] MEDS: CLOPIDOGREL 75 MG TABLET PO SCH (08:47)
[2017-01-03] MEDS: POLYETHYL.GLYCOL 3350 PACKET 17gm PO SCH (08:48)
--- NOTE | 2017-01-03 09:36 | NUR ---
IRU referral received. Will follow with therapy notes today and review with IRU Building Stonecutter today.
--- NOTE | 2017-01-03 10:44 | STDAILYN ---
ST Daily Note Date/Time DATE: 01/03/17 TIME: 10:37 Subjective Comment Pt was alert and cooperative with no complaint of pain. He requested that his denture be cleaned and placed in his mouth. Daughter was at bedside during session. Orientations: Person, Place (I don't know why I am in the hospital.), Alert, Cooperative Chief Complaint: CVA. dysphagia Pain: No Was Patient Education Provided: Yes Person(s) Educated: Patient, Parent/caregiver Education Subject: Diet, Swallowing Strategies, Treatment Plan Instruction Understanding Demo: Pt. verbalizes understand, Famly/Cargvr verb underst Education Comment DROP HAMMER SET UP OPERATOR discussed swallow strategies and diet options. Diet upgraded to soft with chopped meat and syrup thick liquids. Pt and daughter verbalized understanding. *Speech Therapy Impressions Pt was positioned upright in chair for therapeutic feeding trial. Oral care provided and denture placed. Pt drank syrup thick liquids using small sips and slow rate with no s/s of aspiration. He ate diced pears (drained) with reduced mastication and mild oral delay. Alternating solids and liquids and secondary swallow used to clear oral cavity. Pt needed verbal cue to use secondary swallow. Voicing was dry and clear after swallow with no coughing and choking. Diet upgrade and ordering process discussed with pt and daughter. DROP HAMMER SET UP OPERATOR will follow 5x a week x [address] Treatment Plan: Swallow Retraining, Modified Diet ST Treatment Plan Frequency: five times per week Treatment Plan Duration: one week Plan of Care Comment: diet upgraded to soft, chopped with nectar thick liquids referred pt to senior ui ux developer due to diabetes, diet controlled Start Treatment 1: 10:00 Stop Treatment 1: 10:30 Treatment Duration : ST Treatment Charge: Swallow Treatment Minutes of Individual Therapy: 30 ST FIM Comprehension Ability: 5 Supervision/Setup Social Interaction: 6 Modified [place] Expression Ability: 6 Modified [place] Swallowin Minimal Assistance ANA MICHAEL MS [facility]-DROP HAMMER SET UP OPERATOR Jan 03, 2017 10:42
--- NOTE | 2017-01-03 11:01 | NUR ---
Diet consult Diet: Soft, chopped, NT liquid DM meds: Metformin; A1c: 5.5; BGM: 107-124. No recent weight gain or loss. RD recommends continuing above diet; at this time DM diet is not necessary.
[2017-01-03] MEDS ORDERED: POTASSIUM CHLORIDE 20 MEQ TABLET PO ONE ×2 (12:30→17:30)
[2017-01-03] MEDS ORDERED: ACETAMINOPHEN 325 MG TABLET PO PRN (12:45)
[2017-01-03] MEDS ORDERED: BISACODYL 10 MG SUPPOSITORY RECTALLY PRN (12:45)
[2017-01-03] MEDS ORDERED: PRN ORDERS MC (12:45)
[2017-01-03] MEDS ORDERED: MILK OF MAGNESIA 30 ML SUSP PO PRN (12:45)
[2017-01-03] MEDS ORDERED: NITROGLYCERIN 0.4 MG SUBLINGUAL TABLET SL PRN (12:45)
[2017-01-03] MEDS ORDERED: MAG-AL + SIM LIQUID 30 ML UDC PO PRN (12:45)
--- NOTE | 2017-01-03 13:11 | NUR ---
CM CM VISITED PT. CM EXPLAINED ROLE AND PROVIDED CONTACT INFORMATION. PT PLANS TO RETURN TO [facility]. CM SPOKE WITH ARMANDO FROM [facility]. AWARE THAT PT COULD D/C TODAY. CM SPOKE WITH NELLA MCDONOUGH REGARDING IRU CONSULT. CEASAR STATES THAT PT HAS USED IRU IN THE PAST AND THEY ARE OPEN TO IRU IF PT METS CRITERIA. CEASAR AWARE THAT PT COULD D/C TO IRU OR SWV TODAY. CEASAR AWARE TO CONTACT CM IF NEEDS ARISE.
--- NOTE | 2017-01-03 13:20 | PNPDOC ---
Subjective Date DATE: 01/03/17 TIME: 13:10 Subjective F/U: Aphasia, Encephalopathy Sitting up in chair. No recollection of past days. Feels breathing well-no cough , congestion, SOA or pain with breathing. Not having chest pressure or pain. No nausea. Eating okay - not hurting with swallowing. No ab pain. No f/c. Tolerating therapy. Objective Vital Signs Vital signs Vital Signs Date Time Temp Pulse Resp B/P Pulse Ox O2 Delivery O2 Flow Rate FiO2 01/03/17 12:50 95.7 62 12 150/69 94 Room Air 01/03/17 05:16 21 01/01/17 01:05 2.00 Height (Feet): 5 Height (Inches): 11.00 Weight (Kilograms): 79.800 General General Appearance: Alert, Well Nourished, Well Developed, Cooperative, Looks Stated Age Eyes (Brief) Eyes: FOUND: EOMI, PERRL, NOT FOUND: scleral icterus ENMT (Brief) ENMT: FOUND: hearing intact, mucosa moist Neck (Brief) Neck: FOUND: midline, NOT FOUND: nuchal rigidity, spasm Respiratory (Brief) Respiratory: FOUND: clear all moore, equal bilaterally, NOT FOUND: rales, wheezes Cardiovascular (Brief) Cardiac: FOUND: pedal edema (+2), regular rate, regular rhythm Abdomen (Brief) Abdominal: FOUND: BS normo active x4, soft, NOT FOUND: distended, tender Extremities (Brief) Extremity : Side: Bilateral Extremity: leg Extremity Finding: FOUND: edema (+2 ) Musculoskeletal (Brief) Musculoskeletal: NOT FOUND: deformity, spasm, tenderness Integumentary (Brief) Integumentary: FOUND: dry, warm Neurologic (Brief) Neurological: FOUND: cranial 2-12 intact, motor (Intact ) Psychiatric (Brief) Psychiatric: FOUND: alert, normal affect Laboratory Laboratory Laboratory Tests 01/02/17 05:01 01/03/17 04:03 Laboratory Tests 01/02/17 05:01 Assessment & Plan Problems: (1) Aphasia complicating stroke Status: Resolved Assessment & Plan: Expressive/receptive aphasia on admission, resolved within 24 hours (2) Cerebral infarction due to unspecified occlusion or stenosis of left middle cerebral artery Status: Resolved Assessment & Plan: ruled out by MRI (3) Encephalopathy acute Status: Acute (4) Coronary artery disease Status: Chronic (5) Hyperlipidemia Status: Chronic (6) Peripheral neuropathy Status: Chronic Qualifiers: Peripheral neuropathy type: polyneuropathy, unspecified Qualified Codes: G62.9 - Polyneuropathy, unspecified (7) Hypertension Status: Chronic (8) Type 2 diabetes mellitus Status: Chronic Assessment & Plan: A1c 5.5 on 01/02/17 (9) LONA (obstructive sleep apnea) Status: Chronic Assessment & Plan: CPAP (10) Bradycardia (11) Hypokalemia Status: Acute Assessment & Plan: Not POA. Plan/Intensity of Service Will d/c IVF as oral intake improved. Continue PT/OT/Speech to help make functional improvements. Neurological evaluation pending. Replace potassium. Case discussed with CM. Time spent with pt care 25 minutes. DVT Prophylaxis: SQ Heparin Code Status Do Not Resuscitate Hospital Course Summary Disclaimer The hospital course summary below is not to be considered part of the above Progress Note. Hospital Course Summary 12/31-01/01/17 Presentation consistent with acute ischemic stroke likely involving Brocas area. MRI pending. PT/OT/speech therapy consulted. Neuro-feeder catcher tobacco recommendations reviewed, continue Plavix. 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 Permissive hypertension. No gross focal weakness in the extremities evident however patient's receptive aphasia precludes definitive examination. Recent cardiac workup was Dr. Garcia-contact office on Tuesday for results of echo. Neuro-feeder catcher tobacco did not recommend repeating echo at this time or obtaining Dopplers. Lipids/A1c pending. SCDs/heparin for DVT prophylaxis. Critically ill. 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 He is able to respond to questions appropriately and follow commands today. Hemodynamically stable, transfer out of ICU. MRI without evidence of acute stroke, will ask Dr. Sharp to see patient in the morning. Family report event 18 months ago with the same as presenting symptoms and the patient had a brief episode (10 minutes) of aphasia and right- sided weakness suggestive of TIA several days prior to hospitalization. Consider EEG-will discuss with Dr. Sharp. Continue Plavix as per recommendation of neuro-feeder catcher tobacco on date of admission. Continue PT/OT/speech therapy-hopefully can advance diet tomorrow. Diabetes well controlled, typically on metformin but given limited oral intake currently will continue to monitor with diet alone. Persistent bradycardia with rates typically in the 50s but occasionally dropping into the 30s while sleeping; blood pressure stable. Known coronary disease managed by Dr. Garcia, will contact his office tomorrow for results of recent cardiac workup/echocardiogram. Amlodipine on hold, blood pressure minimally elevated. Resume in a.m. Lipids pending 01/03 Sitting up in chair. No recollection of past days. Feels breathing well-no cough , congestion, SOA or pain with breathing. Not having chest pressure or pain. No nausea. Eating okay - not hurting with swallowing. No ab pain. No f/c. Tolerating therapy. Will d/c IVF as oral intake improved. Continue PT/OT/Speech to help make functional improvements. Neurological evaluation pending. Replace potassium. EVELYN LEIGH MD Jan 03, 2017 13:14
--- NOTE | 2017-01-03 14:24 | CONSF ---
DATE OF CONSULTATION 01/03/[address] Thakkar and Dr. Tam PATIENT'S CHIEF COMPLAINT Confusion and speech problem and possible weakness. HISTORY OF PRESENT ILLNESS Patient is an 86-year-old male with history of coronary artery disease with multiple stent placement, cerebrovascular disorder, diabetes mellitus, hypertension and hyperlipidemia. The patient presented with acute onset confusion, difficulty expressing himself and possible right-sided weakness. The patient was brought to the emergency room at [facility]. He continued to be confused and lethargic. He was having difficulty speaking and understanding commands. The patient was not a candidate for TPA due to the unknown onset of symptoms. He was admitted to the medical floor and he had a CT and MRI of the brain that showed no acute intracranial abnormalities. The MRI of the brain showed significant white matter changes consistent with small vessel cerebrovascular disease. Patient's condition slowly improved. His initial speech therapy evaluation was very abnormal. He was having difficulty expressing himself and following commands. He was unable to follow orders for swallowing initially. His condition gradually improved as his mental status functioning improved overall. PHYSICAL EXAMINATION His vital signs showed blood pressure in the 150 to 160/70 range. He had no fever. His pulse was very low in the 45-49 range. Currently patient is awake and alert. He is slightly confused for time and place. He is able to follow commands with no significant difficulties. His speech has improved, he is able to communicate with some mild confusion which can be related to chronic dementia and chronic cerebrovascular disorders. He was able to eat breakfast earlier today including soft mechanical food. He has had no particular weakness in the extremities, although his exam is showing worse weakness on the left compared to the right. On physical examination, the patient was awake, alert, oriented x1. Pupils were round, reactive and equal. Extraocular muscles were intact. Visual field was limited in the periphery. The patient is having some blurry vision and he may need some adjustment of his glasses. Speech was slow and hesitant. Patient was able to name things and follow commands. He was having difficulty reading the clock. His motor examination on the right was 5-/5, on the left was 4+ to 5-/5. Sensory examination was symmetrical for light touch and temperature sensation. Deep tendon reflexes were 2-/4. Coordination for [id number] were slow bilaterally with no significant dysmetria. The patient was having final fine motor problem due to possible arthritic changes. ASSESSMENT 1. Acute onset expressive aphasia and dysphagia which can be related to small vessel cerebrovascular disease or TIA. 2. We cannot rule out a metabolic encephalopathy syndrome associated with dehydration. There is no sign of infection. 3. The patient has a significant bradycardia problem which can cause the patient symptoms that can mimic strokes. PLAN 1. Continue Plavix for stroke prevention and coronary artery disease. 2. Provide good fluid intake. 3. Obtain a cardiology consultation for bradycardia. 4. Continue physical therapy and speech therapy evaluation and treatment. 5. Consider treatment for long-term memory loss and attention problem including starting Aricept 5-10 mg p.o. q.d. MTDD
--- NOTE | 2017-01-03 15:51 | NUR ---
DAYTON HAAS IS ANTICIPATING D/C FOR TOMORROW. [facility] IRU. IRU DIRECTOR WILL REVIEW PT TOMORROW. CM LEFT MESSAGE FOR PT DAUGHTER CEASAR REGARDING D/C FOR TOMORROW. CM ENCOURAGED CEASAR TO CONTACT CM IF NEEDS ARISE.
--- NOTE | 2017-01-03 17:03 | NUR ---
cardiovascular Hr does drop to 39 to 42 but is not prolonged denies any chest pain is resting in bed at present.
--- NOTE | 2017-01-03 19:25 | NUR ---
RESTING NO CO VOICED CONTINUE TO OBSERVE.
[2017-01-03] MEDS: AMLODIPINE 2.5 MG TABLET PO SCH (21:38)
[2017-01-03] MEDS: ATORVASTATIN 40 MG TABLET PO SCH (21:38)
[2017-01-03] MEDS: LATANOPROST 0.005% EYE DROPS 2.5 ML BOTTLE BOTH EYES SCH (21:43)
[2017-01-04] VITALS: BP 156/75; PULSE 46; RESP 20; TEMP 95.5; O2SAT 96
[2017-01-04 00:55] VITALS: O2SAT 96
[2017-01-04 01:22] LABS: RISK FACTOR 3.1 RATIO (0-5.0)
[2017-01-04] MEDS: HEPARIN SUB-Q 5,000 unit/0.5ml vial SQ SCH ×2 (01:49→08:41)
[2017-01-04 02:55] VITALS: O2SAT 95
[2017-01-04 04:23] VITALS: BP 151/80; PULSE 54; RESP 19; TEMP 95.4; O2SAT 94
[2017-01-04 05:01] VITALS: O2SAT 96
--- NOTE | 2017-01-04 05:20 | NUR ---
ALERT AND ORIENTED TO SELF THROUGH NIGHT, MILD CONFUSION NOTED. VSS. TO AMBULATE ASSIST X1 WITH A GAIT BELT AND WALKER. BIPAP ON THROUGH NIGHT, MILD REDNESS TO BRIDGE OF NOSE FROM MASK. PT HAD DIFFICULTY BEGINNING FLOW OF URINE.
[2017-01-04 05:39] LABS: BASOPHILS % (AUTO) 0.3 % (0-2); EOSINOPHILS # (AUTO) 0.4 T/MM3 (0-0.5); EOSINOPHILS % (AUTO) 4.5 % (0-4); HGB - HEMOGLOBIN 13.1 GM/DL (13.5-17.5); IMMATURE GRANULOCYTE # (AUTO) 0.01 T/MM3 (0.00-0.03); IMMATURE GRANULOCYTE % (AUTO) 0.1 % (0.0-0.5); LYMPHOCYTES # (AUTO) 1.4 T/MM3 (1-4.8); LYMPHOCYTES % (AUTO) 17.9 % (23-45); MEAN CORPUSCULAR HGB 31.2 UUG (26-34); MEAN CORPUSCULAR HGB CONC(MCHC 33.6 GM/DL (31-37); MEAN CORPUSCULAR VOLUME 92.9 UM3 (80-100); MEAN PLATELET VOLUME 10.5 UM3 (9.4-12.4); MONOCYTES # (AUTO) 0.9 T/MM3 (0-0.8); MONOCYTES % (AUTO) 10.9 % (0-9.0); NEUTROPHILS #(AUTO)-ABSOLUTE 5.2 T/MM3 (1.8-7.7); NEUTROPHILS % (AUTO) 66.3 % (33-66); WBC - WHITE BLOOD COUNT 7.8 T/MM3 (4.5-11.0)
[2017-01-04 05:47] LABS: ANION GAP 12 MEQ/L (5-15); BUN/CREATININE RATIO 17 RATIO (6-26); CALCIUM 9.2 MG/DL (8.4-10.2); CHLORIDE 105 MEQ/L (98-107); CO2 - CARBON DIOXIDE 25 MEQ/L (22-30); CREATININE 0.6 MG/DL (0.8-1.5); GLOMERULAR FILTRATION RATE 127; GLUCOSE 111 MG/DL (75-110); POTASSIUM 3.9 MEQ/L (3.6-5); SODIUM 142 MEQ/L (134-144)
[2017-01-04 07:30] VITALS: BP 148/75; RESP 16; TEMP 95.5; O2SAT 96
[2017-01-04] MEDS: CLOPIDOGREL 75 MG TABLET PO SCH (08:40)
[2017-01-04] MEDS: POLYETHYL.GLYCOL 3350 PACKET 17gm PO SCH (08:40)
--- NOTE | 2017-01-04 12:11 | NUR ---
DAYTON BURRIS SPOKE WITH DR THOMSON AND HE WILL D/C PT BACK TO [facility] TODAY. DAYTON SPOKE WITH PT DAUGHTER CEASAR AND SHE IS AWARE OF D/C PLAN FOR TODAY. [facility] WILL TRANSPORT. CEASAR AWARE TO CONTACT CM IF NEEDS ARISE.
--- NOTE | 2017-01-04 12:30 | PNPDOC ---
Subjective Date DATE: 01/04/17 TIME: 12:24 Subjective F/U: Aphasia, Encephalopathy Doing well today. Working with therapy. Speech improving. Breathing well-not having SOA, cough or congestion. No chest pressure, pain or palpitation. Appetite stable. No ab pain or nausea. Nursing reports bowels have been moving. No f/c. Objective Vital Signs Vital signs Vital Signs Date Time Temp Pulse Resp B/P Pulse Ox O2 Delivery O2 Flow Rate FiO2 01/04/17 07:30 95.5 16 148/75 96 Room Air 01/04/17 05:01 52 21 01/01/17 01:05 2.00 Height (Feet): 5 Height (Inches): 11.00 Weight (Kilograms): 78.500 General General Appearance: Alert, Well Nourished, Well Developed, Cooperative, Looks Stated Age Eyes (Brief) Eyes: FOUND: EOMI, PERRL, NOT FOUND: scleral icterus ENMT (Brief) ENMT: FOUND: hearing intact, mucosa moist Neck (Brief) Neck: FOUND: midline, NOT FOUND: nuchal rigidity, spasm Respiratory (Brief) Respiratory: FOUND: clear all moore, equal bilaterally, NOT FOUND: rales, wheezes Cardiovascular (Brief) Cardiac: FOUND: regular rate, regular rhythm, NOT FOUND: pedal edema Abdomen (Brief) Abdominal: FOUND: BS normo active x4, soft, NOT FOUND: tender Extremities (Brief) Extremity : Side: Bilateral Extremity: leg Extremity Finding: FOUND: other (SCD in place ), NOT FOUND: edema Musculoskeletal (Brief) Musculoskeletal: FOUND: extremities move equally, NOT FOUND: deformity, spasm Integumentary (Brief) Integumentary: FOUND: dry, warm Neurologic (Brief) Neurological: FOUND: cranial 2-12 intact, motor (Intact ) Psychiatric (Brief) Psychiatric: FOUND: alert, attentive, normal affect Laboratory Laboratory Laboratory Tests 01/03/17 04:03 01/04/17 04:59 Laboratory Tests 01/04/17 04:59 Assessment & Plan Problems: (1) Aphasia complicating stroke Status: Resolved Assessment & Plan: Expressive/receptive aphasia on admission, resolved within 24 hours (2) Cerebral infarction due to unspecified occlusion or stenosis of left middle cerebral artery Status: Resolved Assessment & Plan: ruled out by MRI - Likely small vessel disease. (3) Encephalopathy acute Status: Resolved (4) Coronary artery disease Status: Chronic (5) Hyperlipidemia Status: Chronic (6) Peripheral neuropathy Status: Chronic Qualifiers: Peripheral neuropathy type: polyneuropathy, unspecified Qualified Codes: G62.9 - Polyneuropathy, unspecified (7) Hypertension Status: Chronic (8) Type 2 diabetes mellitus Status: Chronic Assessment & Plan: A1c 5.5 on 01/02/17 (9) LONA (obstructive sleep apnea) Status: Chronic Assessment & Plan: CPAP (10) Bradycardia (11) Hypokalemia Status: Resolved Assessment & Plan: Not POA. Plan/Intensity of Service Will d/c to [facility] for Skilled care - continue PT/OT/Speech to maximize functional status. Continue Plavix for anticoagulation. Continue Norvasc for BP control. Will stop Metformin as sugars well controlled currently. Will have pt f/u with Dr Cecilio Pastor in 1 week. See orders for details. Case discussed with CM. Time spent with pt care and discharge 35 minutes. DVT Prophylaxis: SQ Heparin Code Status Do Not Resuscitate Hospital Course Summary Disclaimer The hospital course summary below is not to be considered part of the above Progress Note. Hospital Course Summary 12/31-01/01/17 Presentation consistent with acute ischemic stroke likely involving Brocas area. MRI pending. PT/OT/speech therapy consulted. Neuro-sports manager recommendations reviewed, continue Plavix. 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 Permissive hypertension. No gross focal weakness in the extremities evident however patient's receptive aphasia precludes definitive examination. Recent cardiac workup was Dr. Garcia-contact office on Tuesday for results of echo. Neuro-sports manager did not recommend repeating echo at this time or obtaining Dopplers. Lipids/A1c pending. SCDs/heparin for DVT prophylaxis. Critically ill. 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 He is able to respond to questions appropriately and follow commands today. Hemodynamically stable, transfer out of ICU. MRI without evidence of acute stroke, will ask Dr. Sharp to see patient in the morning. Family report event 18 months ago with the same as presenting symptoms and the patient had a brief episode (10 minutes) of aphasia and right- sided weakness suggestive of TIA several days prior to hospitalization. Consider EEG-will discuss with Dr. Sharp. Continue Plavix as per recommendation of neuro-sports manager on date of admission. Continue PT/OT/speech therapy-hopefully can advance diet tomorrow. Diabetes well controlled, typically on metformin but given limited oral intake currently will continue to monitor with diet alone. Persistent bradycardia with rates typically in the 50s but occasionally dropping into the 30s while sleeping; blood pressure stable. Known coronary disease managed by Dr. Garcia, will contact his office tomorrow for results of recent cardiac workup/echocardiogram. Amlodipine on hold, blood pressure minimally elevated. Resume in a.m. Lipids pending 01/03 Sitting up in chair. No recollection of past days. Feels breathing well-no cough , congestion, SOA or pain with breathing. Not having chest pressure or pain. No nausea. Eating okay - not hurting with swallowing. No ab pain. No f/c. Tolerating therapy. Will d/c IVF as oral intake improved. Continue PT/OT/Speech to help make functional improvements. Neurological evaluation pending. Replace potassium. 01/04 Doing well today. Working with therapy. Speech improving. Breathing well-not having SOA, cough or congestion. No chest pressure, pain or palpitation. Appetite stable. No ab pain or nausea. Nursing reports bowels have been moving. No f/c. Will d/c to [facility] for Skilled care - continue PT/OT/Speech to maximize functional status. Continue Plavix for anticoagulation. Continue Norvasc for BP control. Will stop Metformin as sugars well controlled currently. Will have pt f/u with Dr Cecilio Pastor in 1 week. See orders for details. EVELYN LEIGH MD Jan 04, 2017 12:28
--- NOTE | 2017-01-04 12:34 | PDOCECFAO ---
Admission Orders Admission Orders Admit to: Longterm Allergies: Coded Allergies: codeine (Verified Allergy, Unknown, 01/01/17) Admitting Diagnosis CVA Admitting Physician Bib Tam MD Attending Physician Dr Cecilio Pastor Code Status Do Not Resuscitate Anticipated LOS: 30 days or less Rehab Potential: Fair Rehab Prognosis: Fair Diet: No Salt Added, No Concentrated Sweets, Soft (Chopped meat, nectar thick liquids. ) May use Facility Protocol /SO: Yes May Have Flu Vaccine: Yes Evaluations/Treat: Speech (Dysphagia), PT, OT Longterm Certification I certify that SNF services are required to be given on an Inpatient basis because of the patients need for assisted care on a continuing basis for the condition(s) for which he/she received inpatient hospital services prior to his/her transfer to the SNF. SNF inpatient care is necessary for the following reasons Diabetic Assessment, Med Admininistration, Teach Med Managment, Other (Skilled PT/OT/Speech to maximize functional status ) Cardiac or Respiratory Arrest In Event of Arrest: Do Not Start CPR Resident is Aware of Diagnosis: Yes Additional Orders: F/U with Dr Cecilio Pastor in 1 week Blood sugar monitoring as prior to admission. BIB TAM MD Jan 04, 2017 12:34
--- NOTE | 2017-01-04 13:11 | NUR ---
elimination Up to br voide and had a small amt of stool. back to bed bladder scanner revealed 0 residual x2,
--- NOTE | 2017-01-04 14:06 | STDAILYN ---
ST Daily Note Date/Time DATE: 01/04/17 TIME: 10:45 Subjective Comment Upon arrival, patient was sitting upright in his chair in a pleasant mood. Patient had no c/o pain or fatigue. Patient agreed to having graduate clinician provide therapy while being supervised by SAP BW DEVELOPER Lori. Orientations: x 3, Alert, Cooperative Chief Complaint: CVA, dysphagia Pain: No (patient reported having no pain ) Was Patient Education Provided: Yes Education Subject: Treatment Plan Instruction Understanding Demo: Pt. verbalizes understand Education Comment Patient was educated on treatment plan. Patient verbalized understanding. *Speech Therapy Impressions LTG: The patient will develop functional and intelligible speech to express his wants and needs in his daily living environment. STG: The patient will complete automatic speech tasks with 90% accuracy and minimal verbal or visual cues. STG: The patient will imitate vowel sounds in unison with the SAP BW DEVELOPER with 90% accuracy and minimal cues. STG: The patient will imitate single-syllable words in unison with the SAP BW DEVELOPER with 90% accuracy. STG: The patient will fill in carrier phrases with 90% accuracy and minimal cues STGs MET Patient was given the Aphasia Language Performance Scales assessment to determine status of communication goals. The following are the results of the assessment: Listenin/10 Talkin/10 Readin.02/02 Writing: Not completed Patient required repetitions of directions throughout the assessment. During the listening portion, patient accurately followed directions; however, he exhibited delayed response and cueing for 3 of the tasks. Patient formulated complete sentences, counted 1-11, and verbally expressed various items located within the room during the talking task. Patient exhibited once instance of word finding difficulty during this task. For the reading task, patient accurately read his name, numbers, single words, and short sentences without difficulty. When given short passages to read, patient exhibited difficulty and required cueing in order to complete the task. The writing portion of this subtest was not completed due to patient having weakness in his hands. Currently , functional status indicates patient has met short term goals. New goals are indicated below. Thin water was trialed at the end of this session. It is recommended for patient to have thin water while only taking small sips at a time. SHORT TERM GOALS: Pt will express wants, needs and feelings through establishment of effective maintenance program to maximize functional communication. Pt will follow three - four step directions utilizing compensatory strategies with 80% accuracy Pt will engage in conversation with at least 5 turn-taking exchanges in a group setting given minimal assist from caregivers. ST Treatment Plan: Communication Retraining, Swallow Retraining, Modified Diet ST Treatment Plan Frequency: five times per week Treatment Plan Duration: one week Plan of Care Comment: Continue Plan of Care Allow sips of thin water Patient progressing towards communiation goals Start Treatment 1: 10:00 Stop Treatment 1: 10:37 Treatment Duration : ST Treatment Charge: Speech Treatment Minutes of Individual Therapy: 37 ST FIM Comprehension Ability: 5 Supervision/Setup Social Interaction: 6 Modified [place] Problem Solvin Minimal Assistance Memory: 4 Minimal Assistance Expression Ability: 6 Modified [place] Swallowin Minimal Assistance RUBÉN GRANT Jan 04, 2017 10:59
--- NOTE | 2017-01-04 14:12 | STDAILYN ---
Discharge Note Date/Time DATE: 01/04/17 TIME: 14:10 Discharge From: Inpatient ST Discharge Destination: SNU ([facility]) Discharge Summary: Follow up with speech therapy in dc setting to implement swallow plan: Soft diet/chopped meat [place] thick liquids Thin water with supervision Recommended Follow-up: Cont. Therapy in DC Envir ANA MICHAEL MS CCC-CIVIL DESIGN TECHNICIAN Jan 04, 2017 14:12
--- NOTE | 2017-01-04 14:46 | NUR ---
CM D/C TIME OUT IS COMPLETE. ALL ORDERS SENT TO POST ACUTE CARE SETTING. ARMANDO FROM [facility] IS AWARE TO CONTACT CM IF NEEDS ARISE.
--- NOTE | 2017-01-04 16:00 | NUR ---
ofelia pulled tele dc;d dc instructions reveiwed dc per wc to jun report called to them
--- NOTE | 2017-01-04 16:09 | PNF ---
DATE 01/04/[address] Tam CHIEF COMPLAINT Expressive aphasia and confusion. HISTORY OF PRESENT ILLNESS Patient continues to improve. His speech is improving. He is able to read and name things better. He is still having some hesitation and difficulty finding all the words he wanted to say. His weakness has improved significantly. It is difficult to appreciate any changes compared to baseline. He has had no new confusion and no alteration of awareness. He continues to take Plavix with no problem. His heart rate has been in the 50 range. He denies being dizzy or tired. Physical examination did not change significantly with improving speech and same strength. ASSESSMENT 1. Acute ischemic small vessel cerebrovascular disease. This has been associated with mild expressive aphasia and questionable right-sided weakness. The patient's symptoms have been improving gradually, especially with speech and physical therapy. 2. Bradycardia which can sometimes cause people to have tiredness and fatigue and mild confusion. This has been stable. 3. Metabolic encephalopathy which is less likely in this clinical setting due to lack of any significant abnormalities in patient metabolites and lack of infectious process. The patient is drinking and eating well at the present time. PLAN 1. Continue Plavix. 2. Monitor the patient's current bradycardia closely and request cardiac evaluation if needed. 3. Continue physical and speech therapy. 4. Watch for any change in mental status, confusion suspicious for encephalopathy or seizure. [facility]
--- NOTE | 2017-01-05 14:49 | DSF ---
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 ASSOCIATED CONDITIONS AND COMPLICATIONS Acute expressive aphasia/dysarthria. Acute encephalopathy. Coronary artery disease. Hyperlipidemia. Peripheral polyneuropathy. Hypertension. Type 2 diabetes mellitus. Osteoarthritis. Bradycardia. Obstructive sleep apnea. Hypokalemia (not present on admission). CONSULTS Dr. Sharp - Neurology PT, OT, Speech PROCEDURES MRI of brain - no acute intracranial hemorrhage or infarct. CLINICAL RESUME The patient is an 86-year-old gentleman who presents to [facility] emergency room secondary to weakness and confusion. He does not reside at the nursing facility due to dysfunction but rather so he can be close to his who has dementia. The patient did start having some speech and right-sided arm abnormalities at approximately 8:30. Daughter was not contacted until 10:30. He was taken for evaluation in emergency room around 11:20. There he did undergo neurological evaluation by Teleneurology. Based on his improving picture and finding he was outside of TPA window, he was not given TPA. Patient is not able to give history. It sounds as if typically he gets around fairly well up but does need four-wheeled walker for assistance. He did have some problems with activities of daily life like buttoning his shirt but typically can dress himself. He does take Plavix routinely and did take it on day of presentation. In light of his symptoms, hospitalist service was notified and he was subsequently placed in inpatient admission status at [facility] for further evaluation and treatment. For complete details of the hospital course, refer to the medical record. LABORATORY White blood count is 10.6 with hemoglobin 13.8, hematocrit 41.0, MCV 92.1 and platelets 251,000. Serum sodium is 142, potassium 5.0, chloride 104, CO2 23, BUN 12 with creatinine 0.8, GFR 127 and blood glucose 131. Hemoglobin A1c is 5.5%. Total bilirubin is slightly elevated at 1.7. Transaminases are unremarkable. Total cholesterol is 98 with LDL 44, HDL 31 and triglycerides 105. INR is 1.16 with PTT 27.0. UA is remarkable for elevated specific gravity greater than or equal to 1.030 and trace ketone. HOSPITAL COURSE The patient was placed in inpatient admission status at [facility] under the care of hospitalist service. PT, OT and Speech were consulted. IV fluids of normal saline were initiated. SCDs and subcutaneous heparin was initiated for DVT prophylaxis. He did make gradual improvements during his hospitalization. By the , his speech and fluency were showing good gains. He was able to respond to questions appropriately and follow commands. Hemodynamically he was stable. He was able to be transferred out of CCU. We did hold metformin during the hospitalization. Blood sugars were showing good control. He did have bradycardia during the hospitalization but this did make gradual improvements. He was not on beta karla. Initially amlodipine was held but able to restart it during the hospitalization. With PT and OT working, he made interval gains in his functional ability. By the , we were able to discontinue IV fluids as oral drive had improved. Potassium did show decrease and was replaced orally. Renal function remained stable. We consulted Dr. Sharp for neurological evaluation. Despite MRI being negative, he did worry there was likely a small vessel stroke. He did recommend good oral intake and fluid management. With his symptoms improving, IRU evaluation was performed but IRU declined the patient as they thought his level of function had returned too much. We did make arrangements for continued PT, OT and Speech to be performed at [facility]. By time of discharge, he was eating, drinking and breathing well. Vitals were stable and he was afebrile. He was able to be discharged to [facility] in [facility] condition. Narrative disclaimer: Above narrative is a brief summary of the patient's hospitalization; for complete details of the hospital course, refer to the medical record. DISCHARGE CONDITION Stable/good. DIET Soft diet with chopped meats and nectar-thick liquids; no added salt/no concentrated sweets. ACTIVITIES Walker for assistance. MEDICATIONS STOP Metformin. STOP Ditropan. Norvasc 2.5 mg q.h.s. Lipitor 40 mg q.h.s. Plavix 75 mg daily. Colace 100 mg b.i.d. Latanoprost 1 drop both eyes q.h.s. Cortisporin cream to right ear every second day. Fish oil 1000 mg daily. MiraLAX 17 g daily. B12 1000 mcg IM q. 2 weeks. FOLLOWUP The patient will work with PT, OT and Speech to maximize functional status. The patient will follow with Dr. Cecilio Pastor in one week, calling or returning sooner as problems or need indicate. INSTRUCTIONS TO PATIENT Patient was instructed on his diagnosis and treatments provided. He was encouraged to participate well with therapy to maximize abilities. He was encouraged to be adherent with medications. Should he develop temperature greater than 104, cough or cardiac symptoms, he can make contact with his providers. Should other problems or need occur he can be in contact with providers as well. If symptoms become quite dire, he can present to emergency room for acute evaluation. He voiced understanding of the above. Time spent with discharge greater than 35 minutes. MTDD
== END 2017-01-04 16:02 | DRG 64 ==
LOC: ED 23:03 → EDHOLD 01-01 00:31 → CCU 01-01 01:05 → MED 01-02 13:15
PROVIDERS: ADMIT Pediatrics; ATTEND Hospitalist
PROC: 5A09357 Assistance with Respiratory Ventilation, Less than 24 Consecutive Hours, Continuous Positive Airway Pressure (ICD-10-PCS; principal; 2017-01-01)
DX: I63.512 Cerebral infarction due to unspecified occlusion or stenosis of left middle cerebral artery (principal); G93.41 Metabolic encephalopathy; R47.01 Aphasia; R47.1 Dysarthria and anarthria; I10 Essential (primary) hypertension; R29.706 NIHSS score 6; E11.9 Type 2 diabetes mellitus without complications; Z66 Do not resuscitate; R00.1 Bradycardia, unspecified; E87.6 Hypokalemia; I25.10 Atherosclerotic heart disease of native coronary artery without angina pectoris; G62.9 Polyneuropathy, unspecified; E78.5 Hyperlipidemia, unspecified; G47.33 Obstructive sleep apnea (adult) (pediatric); E86.0 Dehydration; Z95.1 Presence of aortocoronary bypass graft
CPT/HCPCS: 36415; 51701; 51702; 80048; 80053; 80061; 81003; 82248; 82948; 83036; 84484; 85025; 85610; 85730; 93005; 94002; 94003